=== PATIENT | female | born 1935 | race Caucasian/White ===

== ENCOUNTER 2019-09-28 14:22 | Emergency (ER) | payer MEDICARE, SELFPAY ==
[2019-09-28] VITALS (7 sets, daily range): BP systolic 184–209; BP diastolic 64–82; PULSE 70–80; RESP 18–20; TEMP 36.1; O2SAT 98–100
--- NOTE | ~2019-09-28 | CT_ITS ---
EXAMINATION: CT brain wo con INDICATION: Fall and dizziness COMPARISON: 11/05/2015 TECHNIQUE: Standard unenhanced head CT. The dose-length product (DLP) was 605.33 mGy-cm. The mA was a djusted according to patient size. Iterative reconstruction technique was employed. FINDINGS: There is no acute intraparenchymal hemorrhage. No evidence of mass lesion. No evidence of a cute infarction. There is moderate periventricular and subcortical hypodensity probably related to sm all vessel ischemic disease. There is moderate prominence of the sulci and ventricles related to cere bral atrophy. Intracranial calcified cerebral atherosclerosis is noted. There are no extra-axial stanislav ections. There is no mass effect or midline shift. The orbits and soft tissues are unremarkable. The visualized sinuses and mastoid air cells are well aerated. IMPRESSION: 1. No acute intracranial abnormality. 2. Age related findings. Reviewed, dictated and finalized at location [facility].
--- NOTE | 2019-09-28 14:33 | ECG_ITS ---
Measurements Intervals [place] Rate: 70 P: 59 SD: 170 QRS: 22 QRSD: 86 T: 31 QT: 365 QTc: 396 Interpretive Statements SINUS RHYTHM BORDERLINE T WAVE ABNORMALITY- ANTERIOR LEADS BASELINE ARTIFACT- I, II, III, AVR, AVL, AVF BORDERLINE ECG Electronically Signed On 09-28-2019 15:11:41 CDT by Bao Yousif D.O.
[2019-09-28 15:13] LABS: Basophils Absolute Auto 0.1 K/mm3 (0.0-0.1); Basophils Percent Auto 1.1 % (0.2-1.2); Eosinophils Absolute Auto 0.1 K/mm3 (0-0.3); Eosinophils Percent Auto 2.1 % (0-4.4); Hematocrit 43.5 % (37.0-47.0); Hemoglobin 14.6 g/dL (12.0-15.0); Immature Granulocyte Absolute 0.01 K/mm3 (0.00-0.031); Immature Granulocyte Percent A 0.2 % (0-0.5); Lymphocytes Absolute Auto 1.07 K/mm3 (0.9-3.2); Lymphocytes Percent Auto 17.4 % (18.3-44.2); Mean Corpuscular HGB Conc 33.6 g/dl (32-36); Mean Corpuscular Hemoglobin 29.5 pg (26-34); Mean Corpuscular Volume 87.9 fl (80-100); Mean Platelet Volume 10.1 fl (7.4-10.4); Monocytes Absolute Auto 0.4 K/mm3 (0.1-0.6); Monocytes Percent Auto 6.7 % (2.6-8.5); Neutrophils Absolute Auto 4.5 K/mm3 (1.3-6.7); Neutrophils Percent Auto 72.5 % (45.5-73.1); Platelet Count Result 334 k/mm3 (150-375); Red Blood Count 4.95 M/mm3 (4.2-5.4); Red Cell Distribution Width 12.4 % (11.5-14.5); White Blood Count 6.2 K/mm3 (4.5-10.0)
[2019-09-28 15:26] LABS: Blood Urea Nitrogen 16 mg/dL (7-17); Calcium 9.3 mg/dL (8.4-10.2); Carbon Dioxide 29 mmol/L (22-30); Chloride 95 mmol/L (98-107); Estimated CRCL calculation 36 ml/min; Estimated Glomerular Filt Rate 60; Glucose 108 mg/dL (65-105); Potassium 4.1 mmol/L (3.4-5.0); Sodium 129 mmol/L (137-145)
--- NOTE | 2019-09-28 19:11 | ED.DIZZY ---
HPI - Dizziness General Chief Complaint: Dizziness Stated Complaint: DIZZY, FALLS, TOO MANY BP MEDS Time Seen by Provider: 09/28/19 18:55 History of Present Illness HPI Narrative: Patient presents to the ER with her daughter. The daughter does most of the history giving. The patient is oriented x3, but has difficulty answering distinct questions. The daughter reports that her mom's blood pressure is been going up recently. The PCP added hydrochlorothiazide 25 mg a day. The patient has taken more than the prescribed amount. She had a low sodium before the hydrochlorothiazide was started. She fell a week ago while walking. It was witnessed by a friend. She fell backwards with her head on the concrete. She did not have loss of consciousness. She says she has a bump on the back of her head. She is complained of a headache up to 6 out of 10. She told her daughter it was a 6 upon arriving in the ER, but now is 0. She has had dizziness and off-balance since before the fall last week, but is gotten worse. Her daughter is considering getting a wheelchair for her. They both say that she is weak, but is able to lift and hold both arms and legs, according to NIH guidelines. She has not been sick and denies fever cough cold diarrhea. Her daughter is started ampm medication box. The PCP is at [facility]. The daughter reports her to follow with a neurologist at [facility] if that is going to be necessary. The daughter recently had a concussion, and suspects that her mother is having a concussion. The patient lives with her , who does not have memory problems. The daughter reports memory problems for a year. Cannot remember the day of the week, or the time of the day. he she has to make lists of things she would ordinarily remember. MD elicited complaint: dizziness Onset (ago): week(s) Timing: gradual onset Severity: moderate Description: sense of movement Context: change in medication and trauma History of similar symptoms: Yes Exacerbating factors: movement/ambulation Relieving factors: nothing Associated symptoms: denies other symptoms and weakness Associated neuro symptoms: vision changes (Once she saw a black spot.) Related Data Home Medications Medication Instructions Recorded Confirmed calcium carbonate [Tums Ultra] 400 mg PO DAILY 09/28/19 09/28/19 cyanocobalamin (vitamin B-12) 1,000 mcg PO DAILY 09/28/19 09/28/19 [Vitamin B-12] enalapril maleate 10 mg PO BID 09/28/19 09/28/19 estradiol 2 mg PO DAILY 09/28/19 09/28/19 estradiol VAGINAL 09/28/19 09/28/19 hydrochlorothiazide 25 mg PO 09/28/19 levothyroxine 112 mcg PO 09/28/19 loratadine [Claritin] 10 mg PO DAILY 09/28/19 09/28/19 lorazepam 0.5 mg PO 09/28/19 nortriptyline 25 mg PO 09/28/19 verapamil 180 mg PO 09/28/19 Allergies Allergy/AdvReac Type Severity Reaction Status Date / Time erythromycin base Allergy Unknown Unknown Verified 09/28/19 14:34 Sulfa (Sulfonamide Allergy Unknown Unknown Verified 09/28/19 14:34 Antibiotics) Review of Systems Review of Systems: Narrative: CONSTITUTIONAL: Denies fever, chills, or sweats. EYES: Denies visual changes, redness, or discharge. ENT: Denies rhinorrhea, congestion, sore throat, or otalgia. CARDIOVASCULAR: Denies chest pain, palpitations, or edema. RESPIRATORY: Denies cough or dyspnea. GASTROINTESTINAL: Denies abdominal pain, nausea, vomiting, or diarrhea. GENITOURINARY: Denies dysuria or hematuria. SKIN: Denies rash or itching. MUSCULOSKELETAL: Denies back pain, joint pain, or myalgia. NEUROLOGIC: She has had headache, and weakness PSYCHIATRIC: Denies anxiety or depression. PMFSH Social History Social History Gender identity (if verbalized by the patient): Female Exam Narrative: Exam Narrative: GENERAL: Well-appearing, well-nourished, and in no acute distress. HEAD: Normocephalic, atraumatic. EYES: PERRLA and EOMI. ENT: Nares clear, no rhinorrhea or epistaxis. Mucous membranes dry. NECK: Supple. CHEST: Cl
[2019-09-28] MEDS: SODIUM CHLORIDE 0.9% IV 1,000 ML 999 ML IV CONT (19:35)
[2019-09-28 19:48] LABS: Add Urine Microscopic? NO; Appearance Urine Clear (Clear); Bilirubin Urine Negative (Negative); Blood Urine Negative (Negative); Color Urine Colorless (Yellow); Glucose Urine UA Negative (Negative); Ketones Urine Negative (Negative); Leukocyte Esterase Ur Negative LEU/UL (Negative); Nitrate Urine Negative (Negative); Protein Urine Negative (Negative); Specific Grav Ur 1.008 (1.001-1.035); Urobilinogen Urine Negative mg/dL (<2.0)
[2019-09-28] MEDS: MECLIZINE HCL 25 MG TABLET PO (21:18)
== END 2019-09-28 22:16 | disposition home or self-care (01) ==
PROVIDERS: Emergency Medicine; Emergency Provider Emergency Medicine; PCP Internal Medicine
DX: R42 Dizziness and giddiness (principal); E87.1 Hypo-osmolality and hyponatremia; R41.3 Other amnesia; S09.90XA Unspecified injury of head, initial encounter; I10 Essential (primary) hypertension; W18.39XA Other fall on same level, initial encounter
CPT/HCPCS: 36415; 70450; 80048; 81003; 85025; 93005; 96360; 96361; 99284; A9270; J7030

== ENCOUNTER 2019-11-09 09:58 | Emergency (ER) | payer MEDICARE, SELFPAY ==
--- NOTE | 2019-11-09 10:06 | ED.WOUNDLAC ---
HPI - Wound/Laceration General Chief Complaint: Wound/Laceration Stated Complaint: laceration on forehead Time Seen by Provider: 11/09/19 10:20 Source: patient, family and RN notes reviewed Mode of arrival: ambulatory Limitations: no limitations History of Present Illness HPI narrative: 84 year old female accompanied by daughter presents to express care with laceration to her forehead which occurred this morning while she was walking the exercise track at [address] [place] [address] in [place]. Daughter was with her at the time of fall states that mother stubbed her left foot and fell hitting her forehead onto hand rail at side of track.Patient denies any feelings of dizziness prior to fall or any loss of consciousness at time of fall. Patient also has skin tear to the left thenar region left hand that daughter cleanses and applied Neosporin ointment and band-aid prior to arrival with noted ecchymosis to left hand, and pain to right little finger with full ROM and some bruising. Daughter states that mother has had several falls in the past few years states tetanus is up to date. Daughter states that mother has cane but won't use it. Onset (ago): hour(s) (1) Location: other (forehead) Extremity Location: Left: hand (skin tear left thenar region) Place: outdoors Patient tetanus UTD: Yes Context: accidental Associated symptoms: none Treatments prior to arrival: bandage Related Data Home Medications Medication Instructions Recorded Confirmed cyanocobalamin (vitamin B-12) 1,000 mcg PO DAILY 09/28/19 09/28/19 [Vitamin B-12] enalapril maleate 10 mg PO BID 09/28/19 11/09/19 estradiol 4 mg PO BID 09/28/19 11/09/19 hydrochlorothiazide 25 mg PO DAILY 09/28/19 11/09/19 levothyroxine 112 mcg PO DAILY 09/28/19 11/09/19 loratadine [Claritin] 10 mg PO DAILY 09/28/19 11/09/19 lorazepam 0.5 mg PO DAILY 09/28/19 11/09/19 nortriptyline 25 mg PO DAILY 09/28/19 11/09/19 verapamil 180 mg PO BID 09/28/19 11/09/19 Allergies Allergy/AdvReac Type Severity Reaction Status Date / Time erythromycin base Allergy Unknown Unknown Verified 09/28/19 14:34 Sulfa (Sulfonamide Allergy Unknown Unknown Verified 09/28/19 14:34 Antibiotics) Review of Systems Review of Systems: Narrative: CONSTITUTIONAL: Denies fever, chills, or sweats. EYES: Denies visual changes, redness, or discharge, denies any visual changes. ENT: Denies rhinorrhea, congestion, sore throat, or otalgia. CARDIOVASCULAR: Denies chest pain, palpitations, or edema. RESPIRATORY: Denies cough or dyspnea. GASTROINTESTINAL: Denies abdominal pain, nausea, vomiting, or diarrhea. GENITOURINARY: Denies dysuria or hematuria. SKIN: Denies rash or itching.laceration to forehead from fall, superficial skin tear to left thenar region which family cleansed and applied Neosporin ointment and band-aid prior to arrival MUSCULOSKELETAL: Denies back pain, joint pain, or myalgia. NEUROLOGIC: Denies acute headache, numbness, or weakness. PSYCHIATRIC: Denies anxiety or depression, daughter states memory issues. All systems reviewed & are unremarkable except as noted in HPI and below PMFSH Past Medical History Medical History (Updated 11/10/19 @ 15:19 by Sarah Marte NP) Arthritis Hypertension Hypothyroidism IBS (irritable bowel syndrome) Skin cancer (melanoma) Surgical History Surgical History (Updated 11/09/19 @ 17:51 by Sarah Marte NP) H/O: hysterectomy History of cervical spinal surgery Social History Social History (Updated 11/09/19 @ 17:51 by Sarah Marte NP) Smoking status: Never smoker Living arrangements: with family Gender identity (if verbalized by the patient): Female Comments At time of signature, agree with nursing past medical, surgical, social and family history. There is no relevant family history pertinent to the presenting complaint Exam Narrative: Exam Narrative: GENERAL: Well-appearing, well-nourished, and in no acute distress. HEAD: Normocephalic, atraumat
[2019-11-09 10:12] VITALS: BP 164/83; PULSE 78; RESP 20; TEMP 36.1; O2SAT 100
--- NOTE | 2019-11-09 10:39 | PC.NURSE ---
skin glue to forehead and 3 steri applied
[2019-11-09 10:46] VITALS: BP 193/70; PULSE 70
[2019-11-09 10:47] VITALS: BP 184/50; BP 185/68; PULSE 68; PULSE 70
== END 2019-11-09 10:50 | disposition home or self-care (01) ==
PROVIDERS: Emergency Provider Registered Nurse; PCP Internal Medicine
DX: S01.81XA Laceration without foreign body of other part of head, initial encounter (principal); W18.00XA Striking against unspecified object with subsequent fall, initial encounter; Y93.01 Activity, walking, marching and hiking; S60.051A Contusion of right little finger without damage to nail, initial encounter; S61.412A Laceration without foreign body of left hand, initial encounter; M19.90 Unspecified osteoarthritis, unspecified site; I10 Essential (primary) hypertension; E03.9 Hypothyroidism, unspecified; Z85.820 Personal history of malignant melanoma of skin
CPT/HCPCS: 12011; 99212; G0463

== ENCOUNTER 2020-01-17 12:20 | Outpatient (CLI) | payer MEDICARE, SELFPAY ==
--- NOTE | ~2020-01-17 | MR_ITS ---
EXAMINATION: MR lumbar spine wo con DATE: 01/17/2020 13:48 INDICATION: Lumbago. TECHNIQUE: Magnetic resonance imaging (MRI) of the lumbar spine was performed without intravenous con trast. Sequences included sagittal T2-weighted FSE, sagittal T2-weighted FS FSE, sagittal T1-weighted FSE, and axial T2-weighted FSE. COMPARISON: None FINDINGS: There is 7 degrees levocurvature of lumbar spine. There is 3 mm anterolisthesis of L2 on L3 and L3 on L4 and 3 mm retrolisthesis of L4 on L5. Vertebral body heights are normal. There is modera tely decreased disc height at L2-L3 and severely decreased disc height at L3-L4 and L4-L5. The distal spinal cord signal intensity is normal. The conus medullaris is at T12-L1. The following disc levels are specifically discussed: L1-L2: The disc is mildly bulging. There is mild bilateral facet joint osteoarthritis. There is mild right and moderate left neural foraminal stenosis. There is no central canal stenosis. L2-L3: The disc is bulging and has an annular fissure. There is severe bilateral facet joint osteoart hritis. There is moderate bilateral neural foraminal stenosis. There is severe central canal stenosis . L3-L4: The disc is bulging. There is severe bilateral facet joint osteoarthritis. There is moderate r ight and mild left neural foraminal stenosis. There is severe central canal stenosis. L4-L5: The disc is bulging. There is mild bilateral facet joint osteoarthritis. There is moderate rig ht and severe left neural foraminal stenosis. There is mild central canal stenosis. L5-S1: The disc is bulging. There is moderate bilateral facet joint osteoarthritis. There is mild odalys ateral neural foraminal stenosis. There is mild central canal stenosis. IMPRESSION: 1. Severe lumbar spondylosis. Reviewed, dictated and finalized at location A.
== END 2020-01-17 12:21 | disposition home or self-care (01) ==
LOC: ANHIMG 12:37
PROVIDERS: PCP Internal Medicine; Visit Provider Nurse Practitioner Family
DX: M47.896 Other spondylosis, lumbar region (principal)
CPT/HCPCS: 72148

== ENCOUNTER 2020-04-27 08:55 | Inpatient (IN) | payer MEDICARE, SELFPAY ==
[2020-04-27] VITALS (13 sets, daily range): BP systolic 155–232; BP diastolic 57–101; PULSE 65–82; RESP 15–18; TEMP 36.1–36.6; O2SAT 97–100; BMI 21.2
--- NOTE | 2020-04-27 | ECHO_ITS ---
Patient Info Name: Dena Zurita Age: 84 years : 1935 Gender: Female Ht: 64 in Wt: 123 lbs BSA: 1.59 m2 HR: 70 bpm BP: 189 / 69 mmHg Heart Rhythm: Sinus Rhythm Technical Quality: Good Exam Date: 04/27/2020 1:29 PM Exam Location: [facility] Pulmonary Patient Status: Outpatient Admit Date: 04/27/2020 Staff Ordering Physician: Hong Du MD Rack Carrier: El Monet RDCS Attending Provider: Hong Du MD Referring Physician: Florian RAMESH; Exam Type: CA echo doppler color flow Study Info Indications R55 - Syncope and collapse Complete two-dimensional, color flow and Doppler transthoracic echocardiogram is performed. History/Risk Factors Syncope; HTN. Summary 1. Complete two-dimensional, color flow and Doppler transthoracic echocardiogram is performed. 2. Left ventricular chamber dimension is normal. 3. Left ventricular systolic function is hyperdynamic, estimated at >70%. 4. There is mildly increased left ventricular wall thickness. 5. The left ventricular diastolic function is grade II diastolic dysfunction. 6. Right atrial chamber dimension is mildly enlarged. 7. There is mild mitral valve regurgitation. 8. There is mild tricuspid valve regurgitation. 9. There is mild pulmonic regurgitation. Left Ventricle Left ventricular chamber dimension is normal. Left ventricular systolic function is hyperdynamic, estimated at >70%. There is mildly increased left ventricular wall thickness. The left ventricular diastolic function is grade II diastolic dysfunction. Right Ventricle Right ventricular chamber dimension is normal. Right ventricular systolic function is normal. Left Atria Left atrial chamber dimension is normal. Right Atria Right atrial chamber dimension is mildly enlarged. Atrial Septum Intact interatrial septum visualized by color flow imaging. Aortic Valve The aortic valve is trileaflet. There is mild aortic valve sclerosis. There is no aortic valve stenosis. There is trace aortic valve regurgitation. Pulmonic Valve The pulmonic valve is normal. There is no pulmonic valve stenosis. There is mild pulmonic regurgitation. Mitral Valve The mitral valve has calcified annulus. There is no mitral valve stenosis. There is mild mitral valve regurgitation. Tricuspid Valve The tricuspid valve leaflets are normal. There is no significant tricuspid valve stenosis. There is mild tricuspid valve regurgitation. No pulmonary hypertension, estimated pulmonary arterial systolic pressure is 32 mmHg. Pericardium/Pleural The pericardium appears normal. There is no pericardial effusion. Inferior Vena Cava Normal inferior vena cava with >50% collapse upon inspiration consistent with normal right atrial pressure, 5 mmHg. Aorta The aortic root size at the sinus of Valsalva is normal. Left Ventricular Outflow Tract Name Value Normal LVOT 2D LVOT Diameter 1.9 cm LVOT Doppler LVOT Peak Gradient 4 mmHg LVOT Mean Gradient 2 mmHg LVOT VTI
--- NOTE | ~2020-04-27 | CT_ITS ---
EXAMINATION: CTA chest PE protocol DATE: 05/02/2020 07:52 INDICATION: Pleuritic chest pain TECHNIQUE: Computed tomography angiography (CTA) of the chest was performed with 100 mL Omnipaque-350 intravenous contrast timed to evaluate the pulmonary arteries. Coronal maximum intensity projection 3D-reconstructions were created by the technologist. Automated exposure control and iterative reconst ruction technique were employed. Exam dose: 273.76 mGy-cm total exam DLP. COMPARISON: 11/05/2015 2 view chest FINDINGS: There is diagnostic contrast enhancement of the pulmonary arteries and no evidence of pulmo nary embolism. No thoracic aortic aneurysm or dissection. No hilar or mediastinal mass lesion or lymphadenopathy. No pericardial or pleural effusion. Normal morphology of the adrenal glands. Mild bilateral apical scarring. No pulmonary infiltrate or consolidation or pulmonary mass lesion is detected. Included skeletal structures are unremarkable, without evidence of any suspicious osteolytic or osteo blastic lesions. IMPRESSION: No evidence of pulmonary embolism Reviewed, dictated and finalized at [facility]. Reviewed, dictated and finalized at location A. [employer]
--- NOTE | ~2020-04-27 | CT_ITS ---
EXAMINATION: CT brain wo con DATE: 04/27/2020 09:28 INDICATION: Syncope TECHNIQUE: Computed tomography (CT) of the head was performed without intravenous contrast. Sagittal and coronal reconstructions were performed. The mA was adjusted according to patient size. Iterative reconstruction technique was employed. The dose-length product was 605.33 mGy-cm. COMPARISON: head CT dated 09/28/2019 FINDINGS: No acute intracranial hemorrhage, acute infarction or abnormal extra axial fluid collection. There is moderate scattered white matter hypoattenuation consistent with chronic small vessel ischemic diseas e. Symmetric prominence of the sulci and ventricles consistent with mild age-appropriate diffuse cere bral volume loss. No mass/mass effect. Changes of bilateral intraocular lens replacement. The orbits, paranasal sinuses and mastoid air cells are normal. IMPRESSION: 1. No acute intracranial process. 2. Stable appearance of age-related changes including mild diffuse volume loss and moderate scattered white matter hypoattenuation consistent with chronic small vessel ischemic disease. Reviewed, dictated and finalized at location B. [employer] IMPRESSION: 1. No acute intracranial process. 2. Stable appearance of age-related changes including mild diffuse volume loss and moderate scattered white matter hypoattenuation consistent with chronic sma ll vessel ischemic disease.
--- NOTE | 2020-04-27 08:55 | ED.SYNCOPE ---
HPI - Syncope General Chief Complaint: Syncope Stated Complaint: syncopal episode History of Present Illness HPI narrative: 84 yo female presents to the ED for syncope. She reports that she was walking when she suddenly lost consciousness. She did not have any prodromal symptoms. Her was standing next to her and gently lowered her to the ground. She was only briefly unconscious. She then tried to get up and again passed out. No chest pain, SOB. Her daughter reports that she has been suffering from depression recently and has had poor appetite. Related Data Home Medications Medication Instructions Recorded Confirmed cyanocobalamin (vitamin B-12) 1,000 mcg PO DAILY 09/28/19 04/27/20 [Vitamin B-12] enalapril maleate 10 mg PO BID 09/28/19 04/27/20 estradiol 4 mg PO BID 09/28/19 04/27/20 hydrochlorothiazide 25 mg PO DAILY 09/28/19 04/27/20 levothyroxine 112 mcg PO DAILY 09/28/19 04/27/20 loratadine [Claritin] 10 mg PO DAILY 09/28/19 04/27/20 verapamil 180 mg PO BID 09/28/19 04/27/20 acetaminophen [Tylenol] 325 mg PO DAILY 04/27/20 04/27/20 calcium carbonate [Tums] 750 mg PO BID 04/27/20 04/27/20 cholecalciferol (vitamin D3) 50 mcg PO DAILY 04/27/20 04/27/20 [Vitamin D3] citalopram 10 mg PO DAILY 04/27/20 04/27/20 estradiol VAGINAL 04/27/20 naproxen sodium [Aleve] 220 mg PO DAILY 04/27/20 04/27/20 Allergies Allergy/AdvReac Type Severity Reaction Status Date / Time erythromycin base Allergy Unknown Unknown Verified 04/27/20 09:33 Sulfa (Sulfonamide Allergy Unknown Unknown Verified 04/27/20 09:33 Antibiotics) Review of Systems Review of Systems: All systems reviewed & are unremarkable except as noted in HPI and below Constitutional: Constitutional: Denies fever(s) and Denies weakness Eyes: Eyes: Reports no additional eye complaints ENT: Denies dizziness Cardiovascular: Cardiovascular: Denies chest pain Respiratory: Respiratory: Denies dyspnea Gastrointestinal: Gastrointestinal: Denies abdominal pain, Denies diarrhea and Denies nausea Genitourinary: Genitourinary: Denies hematuria and Denies dysuria Musculoskeletal: Musculoskeletal: Denies back pain Neurologic: Denies dizziness, Reports syncope and Denies weakness Psychiatric: Psychiatric: Reports depression Endocrine: Endocrine: Denies polydipsia PMFSH Past Medical History Medical History Arthritis Hypertension Hypothyroidism IBS (irritable bowel syndrome) Skin cancer (melanoma) Surgical History Surgical History H/O: hysterectomy History of cervical spinal surgery Social History Social History Smoking status: Never smoker Gender identity (if verbalized by the patient): Female Exam Const: General: no acute distress and alert Nutritional Appearance: well nourished Orientation/consciousness: patient oriented x3 HENMT: Mouth: Yes dry mucous membranes Neck: Neck: normal visual inspection Resp: Effort & Inspection: normal respiratory effort Auscultation: clear to auscultation bilaterally Cardio: Rate: regular rate Rhythm: regular rhythm Skin: General skin exam: normal color Neuro: General: patient oriented x3, moves all extremities, no focal motor deficits and CN's II-XI intact bilaterally Speech: normal speech Extrem: General: normal to inspection and no edema Course Vital Signs Vital signs: Vital Signs Temperature 36.6 C 04/27/20 08:50 Pulse Rate 71 04/27/20 08:50 Respiratory Rate 18 04/27/20 08:50 Blood Pressure 212/72 H 04/27/20 08:50 Pulse Oximetry 98 04/27/20 08:50 Temperature 36.6 C 04/27/20 08:50 Pulse Rate 66 04/27/20 11:06 Respiratory Rate 15 04/27/20 11:06 Blood Pressure 189/69 H 04/27/20 11:06 Pulse Oximetry 97 04/27/20 11:06 MDM - Syncope MDM Narrative Medical decision making narrati
--- NOTE | 2020-04-27 08:58 | ECG_ITS ---
Measurements Intervals [place] Rate: 65 P: 79 MD: 180 QRS: 56 QRSD: 85 T: 49 QT: 391 QTc: 407 Interpretive Statements SINUS RHYTHM POSSIBLE LEFT ATRIAL ENLARGEMENT BASELINE ARTIFACT- I, II, III, AVL, AVF BORDERLINE ECG Electronically Signed On 04-27-2020 9:09:02 TIRE BALANCER by Bao Yousif D.O.
[2020-04-27] MEDS: SODIUM CHLORIDE 0.9% IV 500 ML 999 ML IV CONT (09:21)
[2020-04-27 09:56] LABS: Basophils Absolute Auto 0.1 K/mm3 (0.0-0.1); Basophils Percent Auto 0.5 % (0.2-1.2); Eosinophils Percent Auto 0.3 % (0-4.4); Hematocrit 35.8 % (37.0-47.0); Hemoglobin 12.5 g/dL (12.0-15.0); Immature Granulocyte Absolute 0.04 K/mm3 (0.00-0.031); Immature Granulocyte Percent A 0.4 % (0-0.5); Lymphocytes Absolute Auto 0.72 K/mm3 (0.9-3.2); Lymphocytes Percent Auto 7.9 % (18.3-44.2); Mean Corpuscular HGB Conc 34.9 g/dl (32-36); Mean Corpuscular Hemoglobin 30.6 pg (26-34); Mean Corpuscular Volume 87.5 fl (80-100); Mean Platelet Volume 9.7 fl (7.4-10.4); Monocytes Absolute Auto 0.5 K/mm3 (0.1-0.6); Monocytes Percent Auto 5.7 % (2.6-8.5); Neutrophils Absolute Auto 7.8 K/mm3 (1.3-6.7); Neutrophils Percent Auto 85.2 % (45.5-73.1); Platelet Count Result 310 k/mm3 (150-375); Red Blood Count 4.09 M/mm3 (4.2-5.4); Red Cell Distribution Width 11.9 % (11.5-14.5); White Blood Count 9.1 K/mm3 (4.5-10.0)
[2020-04-27 10:09] LABS: Alanine Aminotransferase 16 U/L (4-35); Albumin Level 4.1 g/dL (3.5-5.1); Alkaline Phosphatase 51 U/L (38-126); Anion Gap 7 mmol/L (8-16); Aspartate Amino Transferase 25 U/L (14-36); Bilirubin,Total 0.6 mg/dL (0.2-1.3); Blood Urea Nitrogen 24 mg/dL (7-17); Calcium 8.9 mg/dL (8.4-10.2); Carbon Dioxide 25 mmol/L (22-30); Chloride 92 mmol/L (98-107); Estimated CRCL calculation 27 ml/min; Estimated Glomerular Filt Rate 43; Glucose 100 mg/dL (65-105); Potassium 4.3 mmol/L (3.4-5.0); Sodium 124 mmol/L (137-145)
[2020-04-27 10:23] LABS: Add Urine Microscopic? NO; Appearance Urine Clear (Clear); Bilirubin Urine Negative (Negative); Blood Urine Negative (Negative); Color Urine Straw (Yellow); Glucose Urine UA Negative (Negative); Ketones Urine Negative (Negative); Leukocyte Esterase Ur Negative LEU/UL (Negative); Nitrate Urine Negative (Negative); Protein Urine Negative (Negative); Urobilinogen Urine Negative mg/dL (<2.0)
[2020-04-27] MEDS: hydrALAZINE HCL 20 MG/ML VIAL 10 MG IV PUSH (10:45)
--- NOTE | 2020-04-27 12:00 | ADMGEN ---
This patient, Dena Zurita, was admitted to Medical Room 245-. Patient/family oriented to hospital policies and general routines including ID bracelet, bed and alarms, visiting hours, pain management, procedures, bathroom and other care routines, personal items, smoking policy, room service/diet, and visiting hours. Information on how to activate the Rapid Response Team has been discussed. Patient/Family are encouraged to report perceived risks to care and to ask questions if they do not understand what they are told or what they should do.
--- NOTE | 2020-04-27 12:57 | PM.IMHP ---
H&P: HPI History of Present Illness Date/Time: 04/27/20 12:57 Chief Complaint: passed out Narrative: Date of visit 04/27/2020 1200 Dena Zurita is a 84 year old female with hypertension states this a.m. was walking toward kitchen when she passed out without any warning. Says she fell back and was unconscious for probably maybe 1 or 2 minutes and her helped her up. She was not confused afterwards but did say that after falling had a loose bowel movement which she often does with her irritable bowel. No witnessed seizure activity. Significantly she was hospitalized here just over 4 years ago with a syncopal episode with similar presentation at which time she had a UTI and was felt to be slightly dry. She has had no other fevers chills nausea or vomiting and noticed no palpitations. Review of Systems Review of Systems: Narrative: Constitutional weight steady appetite fair Eye no double vision scotoma Mouth no pharyngitis laryngitis Pulmonary no shortness breath wheezing or cough CV no chest pain or palpitation GI air Will bow occasional loose stool no melena hematochezia no dysuria no hematuria Muscle skeletal no particular joint discomfort Integument no skin breakdown rashes Neuropsych no seizures no syncope PMFSH Past Medical History Medical History Arthritis Hypertension Hypothyroidism IBS (irritable bowel syndrome) Skin cancer (melanoma) Surgical History Surgical History H/O: hysterectomy History of cervical spinal surgery Family History Family History (Updated 04/27/20 @ 13:06 by Hong Du MD) Father , In his 80s thought to be natural causes No problems noted. Mother , In her 80s COPD No problems noted. Social History Social History (Updated 04/27/20 @ 13:06 by Hong Du MD) Social History: Lives at home with her , no occupational exposure Two adult children living and well Smoking status: Never smoker Alcohol intake: never Gender identity (if verbalized by the patient): Female Meds Home Medications and Allergies Home Medications Medication Instructions Recorded Confirmed Type cyanocobalamin (vitamin B-12) 1,000 mcg PO DAILY 09/28/19 04/27/20 History [Vitamin B-12] enalapril maleate 10 mg PO BID 09/28/19 04/27/20 History estradiol 4 mg PO BID 09/28/19 04/27/20 History hydrochlorothiazide 25 mg PO DAILY 09/28/19 04/27/20 History levothyroxine 112 mcg PO DAILY 09/28/19 04/27/20 History loratadine [Claritin] 10 mg PO DAILY 09/28/19 04/27/20 History verapamil 180 mg PO BID 09/28/19 04/27/20 History acetaminophen [Tylenol] 325 mg PO DAILY 04/27/20 04/27/20 History calcium carbonate [Tums] 750 mg PO BID 04/27/20 04/27/20 History cholecalciferol (vitamin D3) 50 mcg PO DAILY 04/27/20 04/27/20 History [Vitamin D3] citalopram 10 mg PO DAILY 04/27/20 04/27/20 History estradiol VAGINAL 04/27/20 History naproxen sodium [Aleve] 220 mg PO DAILY 04/27/20 04/27/20 History Allergies Allergy/AdvReac Type Severity Reaction Status Date / Time erythromycin base Allergy Unknown Unknown Verified 04/27/20 09:33 Sulfa (Sulfonamide Allergy Unknown Unknown Verified 04/27/20 09:33 Antibiotics) Vital Signs Vital Signs - 24 hr 04/27/20 08:50 04/27/20 09:31 04/27/20 09:59 Temperature 36.6 C Pulse Rate 71 75 67 Respiratory Rate 18 Blood Pressure 212/72 H 210/73 H Pulse Oximetry 98 04/27/20 10:01 04/27/20 10:04 04/27/20 11:06 Temperature Pulse Rate 65 78 66 Respiratory Rate 15 Blood Pressure 208/69 H 232/101 H 189/69 H Pulse Oximetry 97 04/27/20 12:38 Temperature Pulse Rate Respiratory Rate 18 Blood Pressure Pulse Oximetry 98 Exam Narrative: Exam Narrative: Blood pressure 194/84 right arm lying sitting and standing with no orthostatic changes pulse 72 afebrile P
[2020-04-27] MEDS: SODIUM CHLORIDE 0.9% IV 1,000 ML 50 ML IV CONT (12:59)
[2020-04-27] MEDS: ENALAPRIL MALEATE 10 MG TABLET PO ×2 (13:00→17:41)
[2020-04-27] MEDS: VERAPAMIL HCL 180 MG TABLET ER PO ×2 (13:00→21:47)
[2020-04-27] MEDS: CALCIUM CARBONATE (TUMS) 500 MG (200 MG ELEMENTAL) 300 MG BY MOUTH (17:40)
[2020-04-27] MEDS: ENOXAPARIN 40 MG/0.4 ML SYRINGE SUB-Q (21:47)
[2020-04-28] VITALS (10 sets, daily range): BP systolic 142–146; BP diastolic 46–55; PULSE 62–81; RESP 16–18; TEMP 36.1–36.3; O2SAT 96–99
[2020-04-28 05:50] LABS: Anion Gap 2 mmol/L (8-16); Blood Urea Nitrogen 17 mg/dL (7-17); Calcium 8.5 mg/dL (8.4-10.2); Carbon Dioxide 25 mmol/L (22-30); Chloride 99 mmol/L (98-107); Estimated CRCL calculation 39 ml/min; Estimated Glomerular Filt Rate > 60; Glucose 86 mg/dL (65-105); Potassium 3.9 mmol/L (3.4-5.0); Sodium 126 mmol/L (137-145)
[2020-04-28 06:08] LABS: Sodium Urine Random 103 meq/L
[2020-04-28] MEDS: VERAPAMIL HCL 180 MG TABLET ER PO ×2 (10:05→21:22)
[2020-04-28] MEDS: CHOLECALCIFEROL 1,000 UNITS TABLET 2000 UNITS PO (10:06)
[2020-04-28] MEDS: LEVOTHYROXINE SODIUM 112 MCG TABLET PO (10:06)
[2020-04-28] MEDS: ENALAPRIL MALEATE 10 MG TABLET PO ×2 (10:06→17:04)
[2020-04-28] MEDS: LORATADINE 10 MG TABLET PO (10:06)
[2020-04-28] MEDS: CALCIUM CARBONATE (TUMS) 500 MG (200 MG ELEMENTAL) 300 MG BY MOUTH ×2 (10:07→17:03)
[2020-04-28] MEDS: CYANOCOBALAMIN 1,000 MCG TABLET 1000 MCG PO (10:07)
--- NOTE | 2020-04-28 13:27 | PM.IMPN ---
Progress Note: A&P Assessment and Plan (1) Syncope and collapse: Code(s): R55 - Syncope and collapse Status: Acute Assessment and Plan: No obvious etiology. With no orthostasis could be arrhythmia and will monitor. repeat echocardiogram EF 70% with grade 2 diastolic dysfunction . will probable discharge with a long-term monitor. As above tele PACs only. CT of the brain is unremarkable and she had an MR in December. fasting cortisol adequate at 13 (2) Uncontrolled hypertension: Code(s): I10 - Essential (primary) hypertension Status: Acute Assessment and Plan: Blood pressure elevated on admission but much better now. Resumed verapamil and enalapril and monitor closely HCTZ still on hold (3) Hyponatremia: Code(s): E87.1 - Hypo-osmolality and hyponatremia Status: Acute Assessment and Plan: Sodium low and could be secondary to diuretic and SSRI with mild volume depletion. Gentle saline hydration overnight and still 126. TSH and fasting cortisol normal urine Na high and may be from HCTZ. Significantly during her last visit some 4 years ago sodium was only 135 (4) DVT prophylaxis: Code(s): Z29.9 - Encounter for prophylactic measures, unspecified Status: Acute Assessment and Plan: Low-dose Lovenox (5) Hypothyroidism: Code(s): E03.9 - Hypothyroidism, unspecified Status: Acute Assessment and Plan: Continue thyroid replacement and TSH normal Subjective Date/time seen: 04/28/20 13:27 Interval history: Date of visit 04/28. 84-year-old hypertensive female admitted with syncopal episode. She has had no further symptoms and no recurrent episodes of. Monitor reports intermittent AFib but on review is only PACs Exam Narrative: Exam Narrative: Blood pressure 146/50 pulse 72 afebrile Pupils equal reactive to light sclera anicteric Mouth normal Neck supple Lungs clear no wheezing consolidation CV no murmurs gallops rubs or clicks Abdomen soft nontender no masses Extremities without edema distal pulses are 1+ bruising of knees without tenderness Neuro alert oriented x4 with no focal deficits, cranial nerves 2-12 are intact, Objective Data Vital Signs Vital Signs: Vital Signs - 24 hr 04/27/20 14:00 04/27/20 15:49 04/27/20 16:00 Temperature 36.1 C L Pulse Rate 70 70 Respiratory Rate 18 Blood Pressure 182/57 H Pulse Oximetry 100 100 04/27/20 20:00 04/27/20 21:47 04/28/20 00:00 Temperature 36.3 C L Pulse Rate 70 82 78 Respiratory Rate 16 Blood Pressure 155/90 H Pulse Oximetry 99 04/28/20 04:00 04/28/20 06:00 04/28/20 08:00 Temperature 36.1 C L Pulse Rate 62 68 77 Respiratory Rate 16 Blood Pressure 146/51 H Pulse Oximetry 96 04/28/20 09:20 04/28/20 12:00 Temperature Pulse Rate 75 Respiratory Rate 16 Blood Pressure Pulse Oximetry 96 Intake/Output Intake/Output: Intake & Output 04/25/20 04/26/20 04/27/20 04/28/20 23:59 23:59 23:59 23:59 Intake Total 940 1332 Output Total 200 600 Balance 740 732 Meds/Results Medications: Active Medications Generic Name Dose Route Start Last Admin Trade Name Freq PRN Reason Stop Dose Admin Acetaminophen 650 mg 04/27/20 12:34 Acetaminophen 325 Mg Tablet PO Q4H PRN Mild Pain (1-3) or Fever Calcium Carbonate 300 mg 04/27/20 17:00 04/28/20 10:07 Calcium Carbonate (Tums) 500 Mg (200 Mg Elemental) BY MOUTH 300 mg BID JARRET Administration Cyanocobalamin 1,000 mcg 04/28/20 09:00 04/28/20 10:07 Cyanocobalamin 1,000 Mcg Tablet PO 1,000 mcg DAILY JARRET Administration Enalapril Maleate 10 mg 04/27/20 17:00 04/28/20 10:06 Enalapril Maleate 10 Mg Tablet PO 10 mg BID JARRET Administration Enoxaparin Sodium 40 mg 04/27/20 21:00 04/27/20 21:47 Enoxaparin 40 Mg/0.4 Ml Syringe SUB-Q 40 mg HS JARRET Administration Levothyroxine Sodium 112 mcg 04/28/20 09:00 04/28/20 10:06 Levo
[2020-04-28] MEDS: ENOXAPARIN 40 MG/0.4 ML SYRINGE SUB-Q (21:22)
[2020-04-29] VITALS (10 sets, daily range): BP systolic 144–180; BP diastolic 59–76; PULSE 60–99; RESP 16–22; TEMP 36.3–37.3; O2SAT 94–100
[2020-04-29] MEDS: ACETAMINOPHEN 325 MG TABLET 650 MG PO (00:15)
[2020-04-29 06:09] LABS: Anion Gap 6 mmol/L (8-16); Blood Urea Nitrogen 13 mg/dL (7-17); Calcium 8.8 mg/dL (8.4-10.2); Carbon Dioxide 24 mmol/L (22-30); Chloride 96 mmol/L (98-107); Estimated CRCL calculation 39 ml/min; Estimated Glomerular Filt Rate > 60; Glucose 87 mg/dL (65-105); Potassium 3.8 mmol/L (3.4-5.0); Sodium 126 mmol/L (137-145)
--- NOTE | 2020-04-29 07:24 | PC.NURSE ---
CALLED INTO ROOM, DAUGHTER ON PTS PHONE. STATES MOTHER CALLED HER CONFUSED AND CRYING AND DEMANDING TO TALK WITH FLOR KEARNEY ABOUT COMING IN AND BEING PTS ADVOCATE. FLOR NOTIFIED AND WILL CALL DAUGHTER BACK
--- NOTE | 2020-04-29 07:37 | PC.NURSE ---
Call to pharmacy in regards to the patients Synthroid schedule at this time. Currently the patients Synthroid is scheduled at the same time as all of her other medications including her vitamin D and Tums tablets.
--- NOTE | 2020-04-29 07:43 | ECG_ITS ---
Measurements Intervals Gaines Rate: 66 P: MA: 0 QRS: 59 QRSD: 82 T: 47 QT: 385 QTc: 405 Interpretive Statements SINUS RHYTHM FREQUENT ATRIAL PREMATURE COMPLEXES BASELINE ARTIFACT- II, III, AVF, V5 ABNORMAL ECG Electronically Signed On 04-29-2020 8:29:40 COBBLER MCKAY by Bao Yousif D.O.
[2020-04-29] MEDS: LEVOTHYROXINE SODIUM 112 MCG TABLET PO (08:43)
[2020-04-29] MEDS: CALCIUM CARBONATE (TUMS) 500 MG (200 MG ELEMENTAL) 300 MG BY MOUTH (10:55)
[2020-04-29] MEDS: CHOLECALCIFEROL 1,000 UNITS TABLET 2000 UNITS PO (10:55)
[2020-04-29] MEDS: LORATADINE 10 MG TABLET PO (10:56)
[2020-04-29] MEDS: VERAPAMIL HCL 180 MG TABLET ER PO ×2 (10:56→20:25)
[2020-04-29] MEDS: ENALAPRIL MALEATE 10 MG TABLET PO ×2 (10:56→18:03)
[2020-04-29] MEDS: CYANOCOBALAMIN 1,000 MCG TABLET 1000 MCG PO (10:56)
--- NOTE | 2020-04-29 17:10 | PM.IMPN ---
Progress Note: A&P Assessment and Plan (1) Syncope and collapse: Code(s): R55 - Syncope and collapse Status: Acute Assessment and Plan: No obvious etiology. With no orthostasis could be arrhythmia and will monitor. repeat echocardiogram EF 70% with grade 2 diastolic dysfunction . will probable discharge with a long-term monitor. As above tele PACs only. CT of the brain is unremarkable and she had an MR in December. fasting cortisol adequate at 13 (2) Uncontrolled hypertension: Code(s): I10 - Essential (primary) hypertension Status: Acute Assessment and Plan: Blood pressure elevated on admission but much better now. Resumed verapamil and enalapril and monitor closely HCTZ still on hold, daughter states that home dose of verapamil is daily but we have been given at b.i.d. with good results and should help for PACs also (3) Hyponatremia: Code(s): E87.1 - Hypo-osmolality and hyponatremia Status: Acute Assessment and Plan: Sodium low and could be secondary to diuretic and SSRI with mild volume depletion and free water intake at home.. Gentle saline hydration overnight initially and still 126. TSH and fasting cortisol normal urine Na high and may be from HCTZ. Significantly during her last visit some 4 years ago sodium was only 135 Continue to monitor (4) DVT prophylaxis: Code(s): Z29.9 - Encounter for prophylactic measures, unspecified Status: Acute Assessment and Plan: Low-dose Lovenox (5) Hypothyroidism: Code(s): E03.9 - Hypothyroidism, unspecified Status: Acute Assessment and Plan: Continue thyroid replacement and TSH normal Subjective Date/time seen: 04/29/20 17:10 Interval history: Date of visit 04/29. 84-year-old hypertensive female admitted with syncopal episode. She has had no further symptoms and no recurrent episodes of. Monitor reports intermittent AFib but on review is only PACs. felt anxious this am and stated was having panic attack Exam Narrative: Exam Narrative: Blood pressure 146/76 pulse 76 afebrile Pupils equal reactive to light sclera anicteric Mouth normal Neck supple Lungs clear no wheezing consolidation CV no murmurs gallops rubs or clicks Abdomen soft nontender no masses Extremities without edema distal pulses are 1+ bruising of knees without tenderness Neuro alert oriented x4 with no focal deficits, cranial nerves 2-12 are intact, Objective Data Vital Signs Vital Signs: Vital Signs - 24 hr 04/28/20 20:00 04/28/20 21:08 04/29/20 00:00 Temperature 36.1 C L Pulse Rate 81 65 73 Respiratory Rate 16 Blood Pressure 146/55 H Pulse Oximetry 99 04/29/20 04:00 04/29/20 05:42 04/29/20 07:45 Temperature 36.3 C L 37.3 C Pulse Rate 60 69 78 Respiratory Rate 16 22 H Blood Pressure 167/59 H 180/63 H Pulse Oximetry 96 100 04/29/20 08:00 04/29/20 12:00 04/29/20 14:00 Temperature 36.9 C Pulse Rate 99 77 77 Respiratory Rate 20 Blood Pressure 149/76 H Pulse Oximetry 100 04/29/20 16:00 Temperature Pulse Rate 76 Respiratory Rate Blood Pressure Pulse Oximetry Intake/Output Intake/Output: Intake & Output 04/26/20 04/27/20 04/28/20 04/29/20 23:59 23:59 23:59 23:59 Intake Total 940 2712 200 Output Total 200 1850 920 Balance 740 862 -720 Meds/Results Medications: Active Medications Generic Name Dose Route Start Last Admin Trade Name Freq PRN Reason Stop Dose Admin Acetaminophen 650 mg 04/27/20 12:34 04/29/20 00:15 Acetaminophen 325 Mg Tablet PO 650 mg Q4H PRN Administration Mild Pain (1-3) or Fever Calcium Carbonate 300 mg 04/27/20 17:00 04/29/20 10:55 Calcium Carbonate (Tums) 500 Mg (200 Mg Elemental) BY MOUTH 300 mg BID JARRET Administration Cyanocobalamin 1,000 mcg 04/28/20 09:00 04/29/20 10:56 Cyanocobalamin 1,000 Mcg Tablet PO 1,000 mcg DAILY JARRET Administration Enalapril Maleate 10 mg 04/27/20 17:00
[2020-04-29] MEDS: ENOXAPARIN 40 MG/0.4 ML SYRINGE SUB-Q (20:25)
[2020-04-30] VITALS (10 sets, daily range): BP systolic 106–133; BP diastolic 46–84; PULSE 54–83; RESP 16–18; TEMP 36.1–36.3; O2SAT 97–99
[2020-04-30] MEDS: LEVOTHYROXINE SODIUM 112 MCG TABLET PO (06:48)
[2020-04-30 08:15] LABS: Anion Gap 2 mmol/L (8-16); Blood Urea Nitrogen 16 mg/dL (7-17); Carbon Dioxide 24 mmol/L (22-30); Chloride 94 mmol/L (98-107); Estimated CRCL calculation 35 ml/min; Estimated Glomerular Filt Rate 60; Glucose 88 mg/dL (65-105); Potassium 3.8 mmol/L (3.4-5.0); Sodium 120 mmol/L (137-145)
[2020-04-30] MEDS: CYANOCOBALAMIN 1,000 MCG TABLET 1000 MCG PO (08:22)
[2020-04-30] MEDS: ENALAPRIL MALEATE 10 MG TABLET PO ×2 (08:22→17:41)
[2020-04-30] MEDS: CALCIUM CARBONATE (TUMS) 500 MG (200 MG ELEMENTAL) 300 MG BY MOUTH ×2 (08:22→17:41)
[2020-04-30] MEDS: CHOLECALCIFEROL 1,000 UNITS TABLET 2000 UNITS PO (08:22)
[2020-04-30] MEDS: LORATADINE 10 MG TABLET PO (08:22)
[2020-04-30] MEDS: VERAPAMIL HCL 180 MG TABLET ER PO ×2 (08:40→20:10)
--- NOTE | 2020-04-30 14:08 | PM.IMPN ---
Progress Note: A&P Assessment and Plan (1) Syncope and collapse: Code(s): R55 - Syncope and collapse Status: Acute Assessment and Plan: No obvious etiology. With no orthostasis could be arrhythmia and will monitor. repeat echocardiogram EF 70% with grade 2 diastolic dysfunction . will probable discharge with a long-term monitor. As above tele PACs only. CT of the brain is unremarkable and she had an MR in December. fasting cortisol adequate at 13 (2) Uncontrolled hypertension: Code(s): I10 - Essential (primary) hypertension Status: Acute Assessment and Plan: Blood pressure elevated on admission but much better now. Resumed verapamil and enalapril and monitor closely HCTZ still on hold, daughter states that home dose of verapamil is daily but we have been given at b.i.d. with good results and should help for PACs also Continue to monitor and if becomes Arturo and will decrease dose (3) Hyponatremia: Code(s): E87.1 - Hypo-osmolality and hyponatremia Status: Acute Assessment and Plan: Sodium low and could be secondary to diuretic and SSRI with mild volume depletion and free water intake at home.. Gentle saline hydration overnight initially and still 126. TSH and fasting cortisol normal urine Na high and may be from HCTZ. Significantly during her last visit some 4 years ago sodium was only 135 Today down to 120 and apparently her daughter was pushing fluids yesterday. Will fluid restrict to 1500 mL per day and has seen by Nephrology further opinion (4) DVT prophylaxis: Code(s): Z29.9 - Encounter for prophylactic measures, unspecified Status: Acute Assessment and Plan: Low-dose Lovenox (5) Hypothyroidism: Code(s): E03.9 - Hypothyroidism, unspecified Status: Acute Assessment and Plan: Continue thyroid replacement and TSH normal Subjective Date/time seen: 04/30/20 14:08 Interval history: Date of visit 04/30. 84-year-old hypertensive female admitted with syncopal episode. She has had no further symptoms and no recurrent episodes . Monitor has had intermittent AFib but on review is only PACs. Exam Narrative: Exam Narrative: Blood pressure 146/76 pulse 76 afebrile Pupils equal reactive to light sclera anicteric Mouth normal Neck supple Lungs clear no wheezing consolidation CV no murmurs gallops rubs or clicks Abdomen soft nontender no masses Extremities without edema distal pulses are 1+ Neuro alert oriented x4 with no focal deficits, cranial nerves 2-12 are intact, Objective Data Vital Signs Vital Signs: Vital Signs - 24 hr 04/29/20 16:00 04/29/20 20:00 04/29/20 22:00 Temperature 36.4 C Pulse Rate 76 75 77 Respiratory Rate 16 Blood Pressure 144/59 H Pulse Oximetry 94 04/30/20 00:00 04/30/20 04:00 04/30/20 04:59 Temperature 36.1 C L Pulse Rate 54 L 83 59 L Respiratory Rate 18 Blood Pressure 126/50 L Pulse Oximetry 99 04/30/20 08:00 04/30/20 12:00 Temperature Pulse Rate 65 69 Respiratory Rate Blood Pressure Pulse Oximetry Intake/Output Intake/Output: Intake & Output 04/27/20 04/28/20 04/29/20 04/30/20 23:59 23:59 23:59 23:59 Intake Total 940 2712 2120 550 Output Total 200 1850 1420 Balance 740 862 700 550 Meds/Results Medications: Active Medications Generic Name Dose Route Start Last Admin Trade Name Freq PRN Reason Stop Dose Admin Acetaminophen 650 mg 04/27/20 12:34 04/29/20 00:15 Acetaminophen 325 Mg Tablet PO 650 mg Q4H PRN Administration Mild Pain (1-3) or Fever Calcium Carbonate 300 mg 04/27/20 17:00 04/30/20 08:22 Calcium Carbonate (Tums) 500 Mg (200 Mg Elemental) BY MOUTH 300 mg BID JARRET Administration Clotrimazole 1 applic 04/30/20 21:00 Betamethasone/Clotrimazole Cr 15 Gm Tube TOPICAL Q12HR [facility] Cyanocobalamin 1,000 mcg 04/28/20 09:00 04/30/20 08:22 Cyanocobalamin 1,000 Mcg Tablet PO 1,000 mcg RADHA
--- NOTE | 2020-04-30 16:42 | PM.CNNEP ---
Assessment and Plan Assessment and plan (1) Hyponatremia: Code(s): E87.1 - Hypo-osmolality and hyponatremia Status: Acute Assessment and Plan: appears acute on chronic sodium in August 2019 was 129mmol/L normal TSH and cortisol lowish -- check cosyntropin stim test was on SSRI and HCTZ prior to admission which could be culprit medications - HCTZ and citalopram on hold now acute drop in Na maybe due to increased free water fluid intake in the last 24 hours (increased free water intake apparently at the behest of family thinking this was needed given her syncopal episode) agree with fluid restriction goal of therapy is an increase in sodium by 4 - 6mmol/L (and no more then 8mmol/L) in 24 hours may need to consider use of 3% saline if falls below 120 for completeness, check SPEP, UPEP as well as serum/urine osmolality follow trend of repeat sodium levels (2) Syncope and collapse: Code(s): R55 - Syncope and collapse Status: Acute Assessment and Plan: etiology unclear Echo results noted no evidence of orthostasis possible arrhythmia? may need holter on discharge (3) Hypertension: Code(s): I10 - Essential (primary) hypertension Status: Acute Assessment and Plan: elevated on admission doing better at this time follow trend of hemodynamics Will continue to follow. History of Present Illness Reason for Consult Consult date: 04/30/20 Reason for consult: hyponatremia (acute on chronic) Chief Complaint Chief complaint: Syncope/uncontrolled hypertension/hyponatremia History of Present Illness Narrative: The patient is a 84 year old female with a past medical history as outlined below Who presented to [facility] emergency room following a syncopal episode. The patient on the day of admission was apparently walking in her home to for her kitchen when she apparently passed out without any warning. She apparently fell back and reportedly was unconscious for about 1-2 minutes before helped her up. There was no reported confusion following the syncopal episode. No apparent seizure activity was noted although she did have a loose bowel movement. Aside from this event she has and had no other issues or problems recently with regard to fevers, chills, nausea, vomiting, dizziness, lightheadedness, or palpitations. Workup and evaluation in the emergency room demonstrated the patient to actually quite hypertensive on initial assessment but in no acute distress. Routine blood test demonstrated evidence of hyponatremia which seems to be somewhat worse than her baseline as well. Given the hyponatremia in association with her elevated blood pressure, it was felt that hospitalization /admission was prudent for observation and further evaluation. Initially, the patient's blood pressure medications were adjusted which seem to improve her her blood pressure readings in general. She was initially given some IV fluids on the assumption perhaps maybe volume depletion was playing a role with her hyponatremia particularly since her daughter reported that she has been somewhat depressed and has not been eating and drinking very well. However, despite these interventions, her sodium actually worsened. Renal consultation was requested due to her acute on chronic hyponatremia. It would seem the patient has had some degree of chronic hyponatremia as her last sodium on record seven months ago demonstrated a value of 129 millimoles per L (August 2019). On admission, her sodium level is 124, increased to 126 but then suddenly dropped to 120 by labs done this morning. There is some concern that the value of one 20 May be secondary to the fact that she was told to increase her oral fluid intake by family thinking this was the cause for her syncopal episode since her admission to the hospital. In spite of this low sodium level, she does not appear to be acutely sympto
[2020-04-30 19:14] LABS: Sodium 118 mmol/L (137-145)
[2020-04-30] MEDS: SODIUM CHLORIDE 3% 300 ML 50 ML IV CONT (20:08)
[2020-04-30] MEDS: BETAMETHASONE/CLOTRIMAZOLE CR 15 GM TUBE 1 APPLIC TOPICAL (20:09)
[2020-04-30] MEDS: ACETAMINOPHEN 325 MG TABLET 650 MG PO (20:10)
[2020-04-30] MEDS: ENOXAPARIN 40 MG/0.4 ML SYRINGE SUB-Q (20:10)
[2020-04-30 23:10] LABS: Creatinine Urine 145.7 mg/dL; Total Protein Urine Random 9 mg/dL; Ur Ttl Prot Creatinine Ratio 0.06 mg/mg (0-0.20)
[2020-04-30 23:21] LABS: Sodium Urine Random 5 meq/L
[2020-05-01] VITALS (9 sets, daily range): BP systolic 134–147; BP diastolic 46–62; PULSE 59–96; RESP 12–20; TEMP 36.1–36.4; O2SAT 99
[2020-05-01 03:27] LABS: Albumin Level 3.5 g/dL (3.5-5.1); Anion Gap 4 mmol/L (8-16); Blood Urea Nitrogen 19 mg/dL (7-17); Carbon Dioxide 22 mmol/L (22-30); Chloride 100 mmol/L (98-107); Estimated CRCL calculation 39 ml/min; Estimated Glomerular Filt Rate > 60; Glucose 96 mg/dL (65-105); Phosphorus 3.1 mg/dL (2.5-4.5); Potassium 3.8 mmol/L (3.4-5.0); Sodium 126 mmol/L (137-145)
--- NOTE | 2020-05-01 04:41 | PC.NURSE ---
[id number] Lala cell phone number and exchange with results from timed [facility]
[2020-05-01] MEDS: DEXTROSE 5% IN WATER 500 ML 200 ML IV CONT (06:03)
[2020-05-01] MEDS: LEVOTHYROXINE SODIUM 112 MCG TABLET PO (06:04)
[2020-05-01] MEDS: CHOLECALCIFEROL 1,000 UNITS TABLET 2000 UNITS PO (08:12)
[2020-05-01] MEDS: VERAPAMIL HCL 180 MG TABLET ER PO ×2 (08:12→20:09)
[2020-05-01] MEDS: CALCIUM CARBONATE (TUMS) 500 MG (200 MG ELEMENTAL) 300 MG BY MOUTH ×2 (08:12→17:42)
[2020-05-01] MEDS: LORATADINE 10 MG TABLET PO (08:12)
[2020-05-01] MEDS: CYANOCOBALAMIN 1,000 MCG TABLET 1000 MCG PO (08:12)
[2020-05-01] MEDS: ENALAPRIL MALEATE 10 MG TABLET PO ×2 (08:12→17:42)
[2020-05-01] MEDS: BETAMETHASONE/CLOTRIMAZOLE CR 15 GM TUBE 1 APPLIC TOPICAL ×2 (08:13→20:16)
[2020-05-01 09:34] LABS: Sodium 125 mmol/L (137-145)
--- NOTE | 2020-05-01 12:11 | PM.IMPN ---
Progress Note: A&P Assessment and Plan (1) Syncope and collapse: Code(s): R55 - Syncope and collapse Status: Acute Assessment and Plan: No obvious etiology. With no orthostasis could be arrhythmia and will monitor. repeat echocardiogram EF 70% with grade 2 diastolic dysfunction . will probable discharge with a long-term monitor. As above tele PACs only and less with increased verapamil . CT of the brain is unremarkable and she had an MR in December. fasting cortisol adequate at 13 (2) Uncontrolled hypertension: Code(s): I10 - Essential (primary) hypertension Status: Acute Assessment and Plan: Blood pressure elevated on admission but much better now. Resumed verapamil and enalapril and monitor closely HCTZ still on hold, daughter states that home dose of verapamil is daily but we have been given at b.i.d(bid on home med list). with good results and should help for PACs also Continue to monitor and if becomes Arturo and will decrease dose (3) Hyponatremia: Code(s): E87.1 - Hypo-osmolality and hyponatremia Status: Acute Assessment and Plan: Sodium low and could be secondary to diuretic and SSRI with mild volume depletion and free water intake at home.. Gentle saline hydration overnight initially and still 126. TSH and fasting cortisol normal urine Na high and may be from HCTZ. Significantly during her last visit some 4 years ago sodium was only 135 04/30 down to 120 and apparently her daughter was pushing fluids 04/29 . Will fluid restrict to 1500 mL per day Na up to 126 this am after 3% saline. Nephrology may do ben stim test (4) DVT prophylaxis: Code(s): Z29.9 - Encounter for prophylactic measures, unspecified Status: Acute Assessment and Plan: Low-dose Lovenox (5) Hypothyroidism: Code(s): E03.9 - Hypothyroidism, unspecified Status: Acute Assessment and Plan: Continue thyroid replacement and TSH normal (6) Dementia: Code(s): F03.90 - Unspecified dementia without behavioral disturbance Status: Acute Assessment and Plan: No specific treatment following up with primary doctor Mabel and neurology Subjective Date/time seen: 05/01/20 12:11 Interval history: Date of visit 05/01. 84-year-old hypertensive female admitted with syncopal episode. She has had no further symptoms and no recurrent episodes . Monitor has had intermittent AFib but on review is only PACs. Exam Narrative: Exam Narrative: Blood pressure 146/54 pulse 70 afebrile comfortable in NAD sitting in chair Pupils equal reactive to light sclera anicteric Mouth normal Neck supple Lungs clear no wheezing or consolidation CV no murmurs gallops rubs or clicks Abdomen soft nontender no masses Extremities without edema distal pulses are 1+ Neuro alert oriented x4 but confused on details, with no focal deficits, cranial nerves 2-12 are intact, Objective Data Vital Signs Vital Signs: Vital Signs - 24 hr 04/30/20 14:00 04/30/20 16:00 04/30/20 17:40 Temperature 36.3 C L Pulse Rate 74 73 Respiratory Rate 16 Blood Pressure 106/46 L 120/58 L Pulse Oximetry 97 04/30/20 20:00 04/30/20 22:00 05/01/20 00:00 Temperature 36.3 C L Pulse Rate 72 72 96 Respiratory Rate 18 Blood Pressure 133/84 Pulse Oximetry 97 05/01/20 04:00 05/01/20 05:06 Temperature 36.4 C Pulse Rate 59 L 70 Respiratory Rate 20 Blood Pressure 147/53 H Pulse Oximetry 99 Intake/Output Intake/Output: Intake & Output 04/28/20 04/29/20 04/30/20 05/01/20 23:59 23:59 23:59 23:59 Intake Total 2712 2120 1540 540 Output Total 1850 1420 200 700 Balance 935 644 1232 -160 Meds/Results Medications: Active Medications Generic Name Dose Route Start Last Admin Trade Name Freq PRN Reason Stop Dose Admin Acetaminophen 650 mg 04/27/20 12:34 04/30/20 20:10 Acetaminophen 325 Mg Tablet PO 650 mg Q4H PRN Administration Mild Prakash
--- NOTE | 2020-05-01 12:45 | PM.PNNEP ---
Progress Note: A&P Assessment and Plan (1) Hyponatremia: Code(s): E87.1 - Hypo-osmolality and hyponatremia Status: Acute Assessment and Plan: appears acute on chronic sodium in August 2019 was 129mmol/L normal TSH and cortisol lowish -- check cosyntropin stim test was on SSRI and HCTZ prior to admission which could be culprit medications - HCTZ and citalopram on hold now acute drop in Na maybe due to increased free water fluid intake yesterday (increased free water intake apparently at the behest of family thinking this was needed given her syncopal episode) agree with fluid restriction goal of therapy is an increase in sodium by 4 - 6mmol/L (and no more then 8mmol/L) in 24 hours - s/p 3% saline yesterday - sodium went from 118 to 126mmol/L (borderline overcorrection) - s/p D5W and repeat sodium 125mmol/L - follow repeat sodium levels and may need further D5W +/- DDAVP follow-up on SPEP, UPEP as well as serum/urine osmolality follow trend of repeat sodium levels (2) Syncope and collapse: Code(s): R55 - Syncope and collapse Status: Acute Assessment and Plan: etiology unclear Echo results noted no evidence of orthostasis possible arrhythmia? may need holter on discharge (3) Hypertension: Code(s): I10 - Essential (primary) hypertension Status: Acute Assessment and Plan: elevated on admission doing better at this time given this issue, try to avoid use of salt tabs to correct #1 follow trend of hemodynamics Will continue to follow. Subjective Date/time seen: 05/01/20 12:45 Appears to be doing reasonably well at this time; s/p 3% saline yesterday but concerns for overcorrection so received D5W IVFs earlier this AM; no other acute issues/events overnight or earlier this AM; no apparent distress voiced at this time. Exam Narrative: Exam Narrative: General: WD/WN female in NAD Heart: normal S1 and S2; no rub Lungs: clear to auscultation Abdomen: soft, nontender, nondistended, positive bowel sounds Extremities: no cyanosis or clubbing; no edema Skin: warm and dry Objective Data Vital Signs Vital Signs: Vital Signs Temp Pulse Resp BP Pulse Ox 05/01/20 12:00 87 05/01/20 08:00 81 05/01/20 05:06 36.4 C 70 20 147/53 H 99 05/01/20 04:00 59 L 05/01/20 00:00 96 04/30/20 22:00 36.3 C L 72 18 133/84 97 04/30/20 20:00 72 04/30/20 17:40 120/58 L Intake/Output Intake/Output: Intake & Output 04/28/20 04/29/20 04/30/20 05/01/20 23:59 23:59 23:59 23:59 Intake Total 2712 2120 1540 1180 Output Total 1850 1420 200 700 Balance 822 816 8605 480 Meds/Results Medications: Active Medications Generic Name Dose Route Start Last Admin Trade Name Freq PRN Reason Stop Dose Admin Acetaminophen 650 mg 04/27/20 12:34 04/30/20 20:10 Acetaminophen 325 Mg Tablet PO 650 mg Q4H PRN Administration Mild Pain (1-3) or Fever Calcium Carbonate 300 mg 04/27/20 17:00 05/01/20 08:12 Calcium Carbonate (Tums) 500 Mg (200 Mg Elemental) BY MOUTH 300 mg BID JARRET Administration Clotrimazole 1 applic 04/30/20 21:00 05/01/20 08:13 Betamethasone/Clotrimazole Cr 15 Gm Tube TOPICAL 1 applic Q12HR JARRET Administration Cyanocobalamin 1,000 mcg 04/28/20 09:00 05/01/20 08:12 Cyanocobalamin 1,000 Mcg Tablet PO 1,000 mcg DAILY JARRET Administration Enalapril Maleate 10 mg 04/27/20 17:00 05/01/20 08:12 Enalapril Maleate 10 Mg Tablet PO 10 mg BID JARRET Administration Enoxaparin Sodium 40 mg 04/27/20 21:00 04/30/20 20:10 Enoxaparin 40 Mg/0.4 Ml Syringe SUB-Q 40 mg HS JARRET Administration Levothyroxine Sodium 112 mcg 04/29/20 06:30 05/01/20 06:04 Levothyroxine Sodium 112 Mcg Tablet PO 112 mcg DAILY@0630 JARRET Administration Loratadine 10 mg 04/28/20 09:00 05/01/20 08:12 Loratadine
[2020-05-01 14:06] LABS: Sodium 125 mmol/L (137-145)
[2020-05-01 18:27] LABS: Sodium 127 mmol/L (137-145)
[2020-05-01] MEDS: ACETAMINOPHEN 325 MG TABLET 650 MG PO (18:56)
[2020-05-01] MEDS: ENOXAPARIN 40 MG/0.4 ML SYRINGE SUB-Q (20:09)
[2020-05-01] MEDS: DEXTROSE 5% IN WATER 400 ML 200 ML IV CONT (20:09)
[2020-05-02] VITALS (7 sets, daily range): BP systolic 142–156; BP diastolic 50–63; PULSE 59–81; RESP 16–20; TEMP 36.3–36.9; O2SAT 96–100
[2020-05-02 00:11] LABS: Sodium 128 mmol/L (137-145)
[2020-05-02] MEDS: DESMOPRESSIN ACETATE 4 MCG/ML AMP 1 MCG SUB-Q (01:00)
[2020-05-02 05:51] LABS: Anion Gap 4 mmol/L (8-16); Blood Urea Nitrogen 18 mg/dL (7-17); Calcium 8.3 mg/dL (8.4-10.2); Carbon Dioxide 25 mmol/L (22-30); Chloride 100 mmol/L (98-107); Estimated CRCL calculation 39 ml/min; Estimated Glomerular Filt Rate > 60; Glucose 82 mg/dL (65-105); Sodium 129 mmol/L (137-145)
[2020-05-02] MEDS: LEVOTHYROXINE SODIUM 112 MCG TABLET PO (06:27)
--- NOTE | 2020-05-02 06:48 | ECG_ITS ---
Measurements Intervals [place] Rate: 65 P: 74 MD: 185 QRS: 44 QRSD: 86 T: 35 QT: 400 QTc: 417 Interpretive Statements SINUS RHYTHM WITH SINUS ARRHYTHMIA BASELINE ARTIFACT- I, II, III, AVR, AVL, AVF NORMAL ECG Electronically Signed On 05-02-2020 7:11:50 [employer] by Bao Yousif D.O.
--- NOTE | 2020-05-02 06:59 | PC.NURSE ---
Dr. River here to see pt and EKG ordered.
--- NOTE | 2020-05-02 07:02 | P.PNCROSS_ITS ---
Event Note Event Note Event Note: Called to bedside by nursing staff for acute chest pain. On my arrival the patient is complaining of pleuritic left sided chest pain with deep inspiration. STAT EKG and troponin were obtained. [place] was administered orally and the patient was sent to have a STAT CTA chest for PE protocol. I have discussed the patient in detail with the day time provider.
[2020-05-02 07:19] LABS: Cortisol Baseline 3.99 ug/dL
[2020-05-02 07:39] LABS: Troponin I < 0.012 ng/mL (0.000-0.034)
--- NOTE | 2020-05-02 07:42 | PC.NURSE ---
pt to CT via wheelchair for stat CT, no distress noted, pt transferred well
[2020-05-02] MEDS: ENALAPRIL MALEATE 10 MG TABLET PO (08:56)
[2020-05-02] MEDS: CALCIUM CARBONATE (TUMS) 500 MG (200 MG ELEMENTAL) 300 MG BY MOUTH (08:57)
[2020-05-02] MEDS: LORATADINE 10 MG TABLET PO (08:57)
[2020-05-02] MEDS: BETAMETHASONE/CLOTRIMAZOLE CR 15 GM TUBE 1 APPLIC TOPICAL (08:57)
[2020-05-02] MEDS: CHOLECALCIFEROL 1,000 UNITS TABLET 2000 UNITS PO (08:57)
[2020-05-02] MEDS: VERAPAMIL HCL 180 MG TABLET ER PO (08:57)
[2020-05-02] MEDS: CYANOCOBALAMIN 1,000 MCG TABLET 1000 MCG PO (08:57)
[2020-05-02] MEDS: ACETAMINOPHEN 325 MG TABLET 650 MG PO (09:00)
[2020-05-02] MEDS: COSYNTROPIN 0.25 MG/ML VIAL IV PUSH (09:03)
--- NOTE | 2020-05-02 09:53 | PCOTNOTE ---
Patient refused treatment this session due to getting no rest over the night. Family member in room stated she did not sleep last night. Pt. stated feeling icky
--- NOTE | 2020-05-02 14:28 | PM.DS ---
DS: Admitting Diagnosis Admitting Diagnosis Admitting Diagnosis: syncope DS: Discharge Diagnosis Discharge Diagnosis (1) Syncope and collapse: Code(s): R55 - Syncope and collapse Status: Acute Assessment and Plan: No obvious etiology. Was noted to have elevated renal function so consider dehydration with orthostasis but BP elevated on admission. Could be related to an arrhythmia. CT of the brain is unremarkable and she had an MR in December. Repeat echo EF 70% with grade 2 diastolic dysfunction. Tele showing no significant dysrhythmias. Fasting cortisol adequate at 13 (cortisol stim test okay as well). Plan for discharge with a monitor. Patient had taken Citalopram one dose the day before the event; this was not continued due to the low sodium. (2) Uncontrolled hypertension: Code(s): I10 - Essential (primary) hypertension Status: Acute Assessment and Plan: Blood pressure elevated on admission. Resumed verapamil and enalapril and BP much better now. HCTZ stopped due to the low sodium. Daughter states that home dose of verapamil is daily but we have been given at b.i.d(bid on home med list) with good results and should help for PACs also. Home with outer diameter grinder tool. (3) Hyponatremia: Code(s): E87.1 - Hypo-osmolality and hyponatremia Status: Acute Assessment and Plan: Sodium low and could be secondary to diuretic and SSRI with mild volume depletion and free water intake at home. Instructed to limit free water. Gentle saline hydration given. TSH and fasting cortisol normal. Urine Na high and may be from HCTZ but repeat better. Has hx of low sodium. Nephrolgy was involved in her care. Discussed with nephrology. Na better at 129 today. Follow as outpatinet. (4) Hypothyroidism: Code(s): E03.9 - Hypothyroidism, unspecified Status: Acute Assessment and Plan: TSH normal. Continue thyroid replacement (5) Dementia: Code(s): F03.90 - Unspecified dementia without behavioral disturbance Status: Acute Assessment and Plan: No specific treatment. She did complain of pleuritic chest pain on the morning of discharge felt related to 'nerves'. She was paranoid and anxious but better once dtr arrived. EKG showing no acute changes and Trop negative. CTA chest negative for PE. Follow up with primary doctor Mabel and neurology DS: Summary Hospital Course Reason for hospitalization: 84-year-old female here after sustaining a syncopal episode. Please see H&P for details. Hospital Course: Please see above for details of hospital course. Status at Discharge Cognitive/behavioral status at discharge: Patient is stable for discharge Time Spent with Patient Time attestation: Total time spent providing and/or coordinating discharge services: 35 minutes Time spent: Greater than 30 minutes Exam Narrative: Exam Narrative: AF 98.4 156/63 70 20 100% ra Gen - NARD sitting up in a chair Chest - CTA bilaterally, nml RR CV - RRR S1/S2. Telemetry showing no significant dysrhythmias Abd - Soft, NT/ND, Positive BS Ext - No pedal edema Neuro - Alert and appropriate. Nonfocal exam. Psych - Nml mood and affect Skin - Warm and dry DS: Data Data Completed and Pending Labs on day of discharge: Labs from last 24 hours 05/02/20 05/02/20 05/02/20 10:09 09:40 07:10 Sodium Potassium Chloride Carbon Dioxide Anion Gap BUN Creatinine Estim Creat Clear Calc Estimated GFR Glucose Calcium Troponin I < 0.012 Cortisol Baseline Cortisol Resp 30 Min 25.80 Cortisol Resp 60 Min 31.90 05/02/20 05/02/20 05/01/20 04:50 04:48 23:50 Sodium 129 L 128 L Potassium 4.0 Chloride 100 Carbon Dioxide 25 Anion Gap 4 L BUN 18 H Creatinine 0.80 Estim Creat Clear Calc 39 Estimated GFR > 60 Glucose 82 Calcium 8.3 L Troponin I Cortisol Baseline
[2020-05-04 05:38] LABS: Osmolality, Urine 396 mOsm/kg (50-1200)
[2020-05-04 11:29] LABS: Kappa\\Lambda Light Chains 1.06 (0.26-1.65); Lambda Light Chain 15.7 mg/L (5.7-26.3)
[2020-05-04 20:35] LABS: Albumin 3.6 g/dL (3.8-4.8); Alpha 1 Globulin 0.3 g/dL (0.2-0.3); Alpha 2 Globulin 0.7 g/dL (0.5-0.9); Beta 1 Globulin 0.4 g/dL (0.4-0.6); Gamma Globulin 0.6 g/dL (0.8-1.7); Interpretation Consistent with; Protein, Total 5.9 g/dL (6.1-8.1)
[2020-05-05 16:17] LABS: Chloride Rand Ur <20 mmol/L (32-290); Creatinine Random Urine 131 mg/dL (20-275)
[2020-05-06 22:57] LABS: Creatinine, Random Urine 132 mg/dL (20-275); Total Protein/Creatinine Ratio 152 mg/g creat (21-161)
== END 2020-05-02 17:35 | disposition home health service (06) | DRG 312 ==
LOC: ANHED 10:05 → ANH2MED 11:44
PROVIDERS: Internal Medicine Nephrology; Admitting Provider Internal Medicine; Emergency Provider Emergency Medicine; PCP Internal Medicine; Visit Provider Family Medicine
DX: R55 Syncope and collapse (principal); E87.1 Hypo-osmolality and hyponatremia; F03.90 Unspecified dementia, unspecified severity, without behavioral disturbance, psychotic disturbance, mood disturbance, and anxiety; I10 Essential (primary) hypertension; E03.9 Hypothyroidism, unspecified; K58.9 Irritable bowel syndrome, unspecified; Z79.899 Other long term (current) drug therapy; Z85.820 Personal history of malignant melanoma of skin
CPT/HCPCS: 36415; 70450; 71275; 80048; 80053; 80069; 81003; 81050; 82436; 82533; 82570; 83883; 83930; 83935; 84155; 84156; 84165; 84166; 84295; 84300; 84443; 84484; 85025; 93005; 93306; 96361; 96372; 96374; 97110; 97116; 97161; 97165; 97530; 97535; 99285; A9270; G0378; J0360; J0834; J1650; J2597; J7030; J7040; J7060; J7131; Q9967

== ENCOUNTER 2020-06-03 12:59 | Outpatient (CLI) | payer MEDICARE, SELFPAY | END 2020-06-03 13:00 | disposition home or self-care (01) | LOC: ANHCOVIDVC 12:59 | PROVIDERS: PCP Internal Medicine | DX: Z23 Encounter for immunization (principal) | CPT/HCPCS: 0001A; 91300 ==

== ENCOUNTER 2020-06-24 13:00 | Outpatient (CLI) | payer MEDICARE, SELFPAY | END 2020-06-24 13:01 | disposition home or self-care (01) | LOC: ANHCOVIDVC 13:00 | PROVIDERS: PCP Internal Medicine | DX: Z23 Encounter for immunization (principal) | CPT/HCPCS: 0002A; 91300 ==

== ENCOUNTER 2020-10-12 14:08 | Outpatient (CLI) | payer MEDICARE, SELFPAY ==
--- NOTE | ~2020-10-12 | MM_ITS ---
EXAMINATION: MM screening isabella BI w gulshan HISTORY: Screening mammogram TECHNIQUE: Craniocaudal and mediolateral oblique 3-D tomosynthesis images were obtained and synthetic 2-D images were generated. CAD analysis was submitted and interpreted. COMPARISON: 04/15/2019, 03/12/2018, 02/07/2016 BREAST PARENCHYMAL COMPOSITION: There are scattered areas of fibroglandular density. FINDINGS: Waxing and waning bilateral breast masses are consistent with cysts. There is no evidence o f suspicious mass, calcification, or architectural distortion to suggest malignancy in either breast. There has been no suspicious interval change. IMPRESSION: 1. No mammographic evidence of malignancy. 2. Recommend routine screening mammography while the patient remains in good health. BI-RADS Category 2: Benign finding(s). Reviewed, dictated and finalized at location A. IMPRESSION: 1. No mammographic evidence of malignancy. 2. Recommend routine screening mammography while the patient remains in good he alth. BI-RADS Category 2: Benign finding(s).
== END 2020-10-12 14:09 | disposition home or self-care (01) ==
LOC: ANHIMG 14:12
PROVIDERS: PCP Internal Medicine; Visit Provider Obstetrics & Gynecology
DX: Z12.31 Encounter for screening mammogram for malignant neoplasm of breast (principal)
CPT/HCPCS: 77063; 77067

== ENCOUNTER 2021-11-17 15:11 | Outpatient (CLI) | payer MEDICARE, SELFPAY ==
--- NOTE | ~2021-11-17 | MM_ITS ---
EXAMINATION: MM screening isabella BI w gulshan HISTORY: Screening mammogram TECHNIQUE: Craniocaudal and mediolateral oblique 3-D tomosynthesis images were obtained and synthetic 2-D images were generated. CAD analysis was submitted and interpreted. COMPARISON: 10/12/2020, 04/15/2019, 03/12/2018 bilateral screening mammogram examinations BREAST PARENCHYMAL COMPOSITION: There are scattered areas of fibroglandular density. FINDINGS: Occasional benign calcifications. There is no evidence of suspicious mass, calcification, o r architectural distortion to suggest malignancy in either breast. There has been no suspicious inter maria change. IMPRESSION: 1. No mammographic evidence of malignancy. 2. Recommend routine screening mammography in one year. BI-RADS Category 2: Benign finding(s). Reviewed, dictated and finalized at location A.
== END 2021-11-17 15:12 | disposition home or self-care (01) ==
LOC: ANHIMG 15:16
PROVIDERS: PCP Internal Medicine; Visit Provider Obstetrics & Gynecology
DX: Z12.31 Encounter for screening mammogram for malignant neoplasm of breast (principal)
CPT/HCPCS: 77063; 77067

== ENCOUNTER 2022-06-16 15:08 | Emergency (ER) | payer MEDICARE, SELFPAY ==
[2022-06-16 15:29] VITALS: BP 177/59; PULSE 83; RESP 16; TEMP 36.2; O2SAT 97
--- NOTE | 2022-06-16 15:38 | ED.URI ---
HPI - URI/Sore Throat General Chief Complaint: Upper Respiratory Infection Stated Complaint: Sinus/ Head Pain Time Seen by Provider: 06/16/22 15:39 Source: patient Mode of arrival: ambulatory Limitations: no limitations History of Present Illness HPI Narrative: patient is is 86-year-old female that presents with pain to bone behind the left ear that is sharp and shooting that started yesterday. reports pain when opening mouth and eating. also reports congestion an intermittent sore throat. patient takes a daily Claritin but has has not taken anything else for pain. patient denies any headache, changes in vision, pain radiating down the neck. Patient was seen a dentist a month ago and had x-rays. Related Data Home Medications Medication Instructions Recorded Confirmed cyanocobalamin (vitamin B-12) 1,000 mcg PO DAILY 09/28/19 06/16/22 1,000 mcg tablet (Vitamin B-12) estradiol 2 mg tablet 4 mg PO BID 09/28/19 06/16/22 levothyroxine 112 mcg tablet 137 mcg PO DAILY 09/28/19 06/16/22 loratadine 10 mg tablet (Claritin) 10 mg PO DAILY 09/28/19 06/16/22 verapamil 180 mg tablet,extended 180 mg PO BID 09/28/19 06/16/22 release acetaminophen 325 mg tablet 325 mg PO DAILY 04/27/20 06/16/22 (Tylenol) calcium carbonate 300 mg (750 mg) 750 mg PO BID 04/27/20 06/16/22 chewable tablet (Tums) cholecalciferol (vitamin D3) 50 50 mcg PO DAILY 04/27/20 06/16/22 mcg (2,000 unit) capsule (Vitamin D3) estradiol 0.01% (0.1 mg/gram) 0.1 applic vaginal 2XW 04/27/20 06/16/22 vaginal cream Natural Vitamin E 1 tab-cap PO DAILY 06/16/22 06/16/22 Saccharomyces boulardii 250 mg 250 mg PO DAILY 06/16/22 06/16/22 capsule (Florastor) ascorbic acid (vitamin C) 500 mg 500 mg PO DAILY 06/16/22 06/16/22 tablet (Vitamin C) hydralazine 50 mg tablet 50 mg PO TID 06/16/22 06/16/22 mirtazapine 15 mg tablet 7.5 mg PO DAILY 06/16/22 06/16/22 Allergies Allergy/AdvReac Type Severity Reaction Status Date / Time erythromycin base Allergy Unknown Unknown Verified 06/16/22 15:11 Sulfa (Sulfonamide Allergy Unknown Unknown Verified 06/16/22 15:11 Antibiotics) enalapril Allergy Swelling Verified 06/16/22 15:33 NSAIDS (Non-Steroidal Allergy Gastrointestinal Verified 06/16/22 15:52 Anti-Inflamma Upset Review of Systems Review of Systems: All systems reviewed & are unremarkable except as noted in HPI and below Constitutional: Constitutional: Denies body ache(s), Denies fever(s), Denies headache(s), Denies malaise and Denies weakness Eyes: Eyes: Denies loss of vision ENT: Reports otalgia, Denies headache(s), Denies nasal congestion, Denies sinus pain and Denies sore throat Cardiovascular: Cardiovascular: Denies chest pain, Denies irregular heart rhythm and Denies dyspnea Respiratory: Respiratory: Denies cough and Denies dyspnea Gastrointestinal: Gastrointestinal: Denies abdominal pain, Denies melena, Denies hematochezia, Denies diarrhea, Denies nausea and Denies vomiting Musculoskeletal: Musculoskeletal: Denies back pain, Denies myalgias and Denies arthralgias Integumentary/Breasts: Skin/Breast: Denies pruritus and Denies rash Neurologic: Denies headache(s), Denies loss of vision and Denies weakness Psychiatric: Psychiatric: Reports no additional psychiatric complaints [facility] Past Medical History Medical History (Updated 06/16/22 @ 16:07 by Sarai Smalls, ANISA) Arthritis Hypertension Hypothyroidism IBS (irritable bowel syndrome) Skin cancer (melanoma) Surgical History Surgical History H/O: hysterectomy History of cervical spinal surgery Family History Family History (Updated 04/27/20 @ 13:06 by Hong DuMD) Father , In his 80s thought to be natural causes No problems noted. Mother , In her 80s COPD No problems noted. Social History Social History Social His
== END 2022-06-16 16:10 | disposition home or self-care (01) ==
PROVIDERS: Emergency Provider Nurse Practitioner Family; PCP Internal Medicine
DX: H92.02 Otalgia, left ear (principal); I10 Essential (primary) hypertension; E03.9 Hypothyroidism, unspecified; Z85.828 Personal history of other malignant neoplasm of skin
CPT/HCPCS: 99211; G0463

== ENCOUNTER 2023-07-22 15:16 | Outpatient (CLI) | payer MEDICARE, SELFPAY ==
--- NOTE | ~2023-07-22 | MM_ITS ---
EXAMINATION: MM screening isabella BI w gulshan HISTORY: Screening mammogram TECHNIQUE: Craniocaudal and mediolateral oblique 3-D tomosynthesis images were obtained and synthetic 2-D images were generated. CAD analysis was submitted and interpreted. COMPARISON: 11/17/2021, 10/12/2020 bilateral screening mammogram examinations BREAST PARENCHYMAL COMPOSITION: There are scattered areas of fibroglandular density. FINDINGS: There is no evidence of suspicious mass, calcification, or architectural distortion to sugg est malignancy in either breast. There has been no suspicious interval change. IMPRESSION: 1. No mammographic evidence of malignancy. 2. Recommend routine screening mammography in one year. BI-RADS Category 1: Negative Reviewed, dictated and finalized at location A.
== END 2023-07-22 15:17 | disposition home or self-care (01) ==
LOC: ANHIMG 15:33
PROVIDERS: PCP Internal Medicine; Visit Provider Obstetrics & Gynecology
DX: Z12.31 Encounter for screening mammogram for malignant neoplasm of breast (principal)
CPT/HCPCS: 77063; 77067

== ENCOUNTER 2024-07-30 14:35 | Outpatient (CLI) | payer MEDICARE, SELFPAY ==
--- NOTE | ~2024-07-30 | MM_ITS ---
EXAMINATION: MM screening isabella BI w gulshan HISTORY: Screening TECHNIQUE: Craniocaudal and mediolateral oblique 3-D tomosynthesis images were obtained and synthetic 2-D images were generated. CAD analysis was submitted and interpreted. COMPARISON: Comparison to multiple prior studies sequentially, with oldest reviewed study dated 05/2016. BREAST PARENCHYMAL COMPOSITION: Dense: The breasts are heterogeneously dense, which may obscure small masses FINDINGS: There is no evidence of suspicious mass, calcification, or architectural distortion to sugg est malignancy in either breast. There has been no suspicious interval change. IMPRESSION: 1. No mammographic evidence of malignancy. 2. Recommend routine screening mammography in one year. BI-RADS Category 1: Negative Reviewed, dictated and finalized at location A.
--- OUTSIDE RECORDS SUMMARY | 2024-07-30 15:21 | XMS_ITS | Referral Summary ---
Author Organization [facility] Address [address] [place] [address] Care Team Providers Care Roadmaster Name Role Phone Jamaal Monroe MD Primary Care Provider [phone] Allergies Active Allergy Reactions Criticality Noted Date Comments Ciprofloxacin Angioedema High 02/26/2023 Enalapril-Hydrochlorothiazide Dizziness, Swelling,Swoll en tongue High 03/31/2021 Erythromycin Hives Medium 08/23/2017 Nitrofurantoin Joint pain Low 02/26/2024 Sulfa (Sulfonamide Antibiotics) Hives Medium 07/19/2010 Tramadol Hives,Itching,Swelling Medium 09/16/2018 Medications calcium carbonate-jojo min D3 1,250mg (500mg elemental) - 200 units per tablet Take 1 tablet by mouth daily Active acetaminophen (TYLENOL) 500 mg tablet Take 1 tablet (500 mg total) by mouth 2 (two) times a day after breakfast and lunch Active cyanocobalamin (Vitamin B-12) 100 mcg tabletIndicati ons:Prevention of Vitamin B12 Deficiency Take 1 tablet (100 mcg total) by mouth daily Active ascorbic acid (VITAMIN C) 500 mg tablet,chewabl e Take 1 tablet/chew tab (500 mg total) by mouth daily Active cholecalcifero l (VITAMIN D-3) 2,000 unit tablet Take 1 tablet (2,000 Units total) by mouth daily Active loratadine (CLARITIN) 10 mg tablet Take 1 tablet (10 mg total) by mouth daily Active Saccharomyces boulardii (FLORASTOR) 250 mg capsule Take 1 capsule (250 mg total) by mouth daily Active vitamin E (AQUASOL E) 400 unit capsule Take 1 capsule (400 Units total) by mouth daily Active hydrALAZINE (APRESOLINE) 50 mg tablet TAKE 1 TABLET BY MOUTH THREE TIMES DAILY 42 tablet 23 03/08/20 22 Active levothyroxine (SYNTHROID) 137 mcg tablet TAKE 1 TABLET BY MOUTH ONCE DAILY 14 tablet 23 03/08/20 22 Active clotrimazole-b etamethasone (LOTRISONE) cream Apply topically 2 (two) times a day 30 g 1 06/21/19 23 Active ondansetron (ZOFRAN) 4 mg tablet Take 1 tablet (4 mg total) by mouth every 8 (eight) hours as needed for nausea or vomiting 20 tablet 07/18/19 23 Active estradioL (ESTRACE) 2 mg tablet TAKE 1 TABLET BY MOUTH ONCE DAILY 14 tablet 23 07/27/[address] (PROTONIX) 40 mg EC tablet TAKE 1 TABLET BY MOUTH ONCE DAILY 14 tablet 23 07/27/19 23 Active HYDROcodone-ac etaminophen (NORCO) 5-325 mg per tablet TAKE 1/2 TAB BY MOUTH EVERY 6 HOURS NEEDED *BLISTER* 30 tablet 11/16/19 23 Active verapamil SR (CALAN SR) 180 mg CR tablet Take 1 tablet (180 mg total) by mouth 2 (two) times a day 05/01/19 24 Active fluconazole (DIFLUCAN) 150 mg tablet TAKE 1 TABLET BY MOUTH DIRECTED ON DAYS 1,3 AND 7. 06/07/19 24 Active estradioL (ESTRACE) 0.01 % (0.1 mg/gram) vaginal cream APPLY VAGINALLY ONCE NIGHTLY FOR ONE WEEK, THEN EVERY SATURDAY, SATURDAY, AND SATURDAY 43 g 02/19/20 24 Active mirtazapine (REMERON) 15 mg tablet Take 1 tablet (15 mg total) by mouth nightly 30 tablet 03/17/20 24 Active enalapril (VASOTEC) 10 mg tablet TAKE 1 TABLET BY MOUTH TWICE DAILY 28 tablet 23 08/26/19 21 021 Discontinued Active Problems Problem Noted Date Diagnosed Date Recurrent UTI 08/23/2023 Acute otalgia, left 06/26/2022 Bilateral impacted cerumen 06/26/2022 Herpes zoster without complication 06/26/2022 Late onset Alzheimer's disea se without behavioral disturbance 10/26/2020 Hyponatremia 05/10/2020 Assessment & Plan (05/10/2020 3:30 PM CANT HOOKER): Check BMP at this time Hypothyroidism 05/10/2020 Assessment & Plan (05/10/2020 3:30 PM CANT HOOKER): Check TSH Spondylolisthesis of lumbar region 03/09/2020 Assessment & Plan (05/10/2020 3:30 PM CANT HOOKER): To have a another injection at her back shortly his Essential hypertension 01/05/2020 Assessment & Plan (05/10/2020 3:30 PM CANT HOOKER): Patient's blood pressure is doing well continue current medication Assessment & Plan (01/05/2020 12:16 PM CDT): Blood pressure now at target. Blood pressure by my exam 122/78. Will continue present Rx Memory loss 01/05/2020 Assessment & Plan (05/10/2020 3:30 PM CANT HOOKER): Continue current medications will try mirtazapine 7.5 HS Assessment & Plan (01/05/2020 12:17 PM CDT): Patient here today for evaluation of her memory loss. Plan at this time is to have her see Neurology in April. We did discuss the possibility of using donepezil but due to side effect profile they would prefer to withhold this at this time. She has stopped her nortriptyline in its entirety. She has reduced her alprazolam use to half a tablet at bedtime. She is aware that this may be contributing to falls as well as to memory issues. She will discuss this further with Neurology. Immunizations Immunization Administration Dates Next Due Influenza, Quadrivalent, Hig h Dose, Preservative Free, Intrr 12/31/2019,12/31/2019 Influenza, Quadrivalent, Rec ombinant, Egg Free, Preservative Free, Intramuscular 01/14/2019 Influenza, Trivalent, Adjuva nted, Intramuscular 01/08/2018,01/07/2018,01/23/2017 Influenza, Trivalent, High D ose, Split, Preservative Free, Intramuscular 01/05/2015,01/02/2015 Influenza, Trivalent, IM (MDV) 01/19/2014,2012 Influenza, Trivalent, Preser vative Free, Intramuscular 11/30/2013,01/14/2013,11/30/2012 Influenza, Unspecified 01/01/2023 Pfizer SARS-CoV-2 Monovalent Vaccination (12+ Yrs) PURPLE 10/06/2021 ZOSTER Recombinant 03/11/2023,12/21/2022 Social History Tobacco Use Types Packs/Day Years Used Date Smoking Tobacco: Never Smokeless Tobacco: Never Tobacco Cessation:Counseling Given: Not Answered Alcohol Use Standard Drinks/Week Comments No 0 (1 standard drink = 0.6 oz pur e alcohol) Personal Safety Answer Date Recorded Have you ever been in or are you currently in a harmful physical or emotional relationship or is someone making you feel afraid or unsafe? Denies 05/31/2023 Comments No Sex and Gender Information Value Date Recorded Sex Assigned at Not on file Legal Sex Female 7:50 PM CANT HOOKER Gender Identity Not on file Sexual Orientation Not on file Last Filed Vital Signs Vital Sign Reading Time Taken Comments Blood Pressure 175/72 02/26/2024 11:07 AM CANT HOOKER Pulse 73 02/26/2024 11:07 AM CANT HOOKER Temperature 36.7 C (98.1 F) 05/31/2023 5:45 PM CANT HOOKER Respiratory Rate 19 05/31/2023 8:30 PM CANT HOOKER Oxygen Saturation 97% 02/26/2024 11:07 AM CANT HOOKER Inhaled Oxygen Concentration - - Weight 49.4 kg (109 lb) 02/26/2024 11:07 AM CANT HOOKER Height 162.6 cm (5' 4 ) 02/26/2024 11:07 AM CANT HOOKER Body Mass Index 18.71 02/26/2024 11:07 AM CANT HOOKER Plan of Treatment Not on file Insurance MEDICARE [place] [employer] MEDICARE [employer] SENIOR SUPPLEMENT MEDICARE [employer] MEDICARE [employer] Advance Directives For more information, please contact: [phone] Documents on File Type Date Recorded Patient Senior Qa Analyst Expl anation ADVANCE DIRECTIVE 06/03/2023 2:58 PM POLST - Phys Order for PT Preferences ADVANCE DIRECTIVE 02/08/2021 1:07 PM POLS T - PHYS ORDER FOR PT PREFERENCES Care Teams Roadmaster Relationship Specialty Start Date End Date Jamaal Monroe MD [address] [address] PCP - General 08/28/16
--- OUTSIDE RECORDS SUMMARY | 2024-07-30 15:21 | XMS_ITS | Continuity of Care Document ---
Author Organization [facility] Address [address] [place] [address] Phone Care Team Providers Care Qa Lead Name Role Phone Hernández OD, Nicholas Unavailable Unavailable Procedures Procedure Date Contact Lens Check Eye Exam & Treatment Contact Lens Assessment Eye Exam & Treatment No Script Refraction No Charge Contact Lens Check No Charge Contact Lens Check No Charge Contact Lens Check Eye Exam & Treatment Refraction Eye Exam & Treatment Refraction Visual Functional Status Assessed Advance Directives Directive Yes / No Effective Date File Name No Information Encounters Encounter Description Practice Location Reason(s) For Visit Diagnoses Date Provider Providers Copied on Encounter [facility], [address], [place], [place], [id number], tel:[phone] [facility] No Information Oct-0 1-201 0 Hernández OD Nicholas. [address] , [address], [place], [address], [place]. tel:[phone] [facility], [address], [place], [place], [id number], [place] tel:[phone] [facility] No Information Sep-2 4-201 0 Hernández OD Nicholas. [address] , [address], [place], [address], [place]. tel:[phone] [facility], [address], [place], [place], [id number], [place] tel:[phone] [facility] No Information Sep-2 4-200 9 Hernández OD Nicohlas. [address] , [address], [place], [place], [facility], . tel:[phone] [facility], [address], [place], [place], [id number], [place] tel:[phone] [facility] No Information Sep-1 1-200 8 Hernández OD Nicholas. [address] , [address], [place], [place], [facility], [place]. tel:[phone] [facility], [address], [place], [place], [id number], [place] tel:[phone] [facility] No Information Sep-0 4-200 8 Hernández OD Nicholas. [address] , [address], [place], [place], [facility], [place]. tel:[phone] [facility], [address], [place], [place], [id number], [place] tel:[phone] [facility] No Information Aug-2 8-200 8 Hernández OD Nicholas. [address] , [address], [place], [facility], [place]. tel:[phone] [facility], [address], [place], [place], [address], [place] tel:[phone] [facility] No Information Aug-2 1-200 8 Hernández OD Nicholas. [address], [place], [facility], [place]. tel:[phone] [facility], [address], [place], [place], [address], [place] tel:[phone] [facility] No Information 1-200 7 Hernández OD Nicholas. [address] , [address], [place], [address], [place]. tel:[phone] Family History Family Member Type Diagnosis Age At Onset No Information Payers Payer name Insurance type Covered green party ID Authoriza tion(s) No Information Social History Type Description Quantity Date Captured Comments Sex Female Smoking Status No Information Chief Complaint And Reason For Visit No Information Reason For Referral Reason For Referral No Information History Of Present Illness Encounter Date Complaint History Of Prese nt Illness No Information Functional Status Date Functional Assessmen t No Information Instructions Date Instruction Additional Infor mation No Information Assessments Type Assessment Date No Information Patient Care Teams Name Effective Dates (start - stop) Status Members No Information
--- OUTSIDE RECORDS SUMMARY | 2024-07-30 15:21 | XMS_ITS | Clinical Summary ---
Author Organization [facility] Address [address] [place] [address] Care Team Providers Care Blood Donor Recruiter Supervisor Name Role Phone Jamaal Monroe MD Primary Care Provider [phone] Allergies Active Allergy Reactions Criticality Noted Date [...] 05/10/2020 Assessment & Plan (05/10/2020 3:30 PM MATTRESS STRIPPER): Check BMP at this time Hypothyroidism 05/10/2020 Assessment & Plan (05/10/2020 3:30 PM MATTRESS STRIPPER): Check TSH Spondylolisthesis of lumbar region 03/09/2020 Assessment & Plan (05/10/2020 3:30 PM MATTRESS STRIPPER): To have a another injection at her back shortly his Essential hypertension 01/05/2020 Assessment & Plan (05/10/2020 3:30 PM MATTRESS STRIPPER): Patient's blood pressure is doing well continue current medication Assessment & Plan (01/05/2020 12:16 PM CDT): Blood pressure now at target. Blood pressure by my exam 122/78. Will continue present Rx Memory loss 01/05/2020 Assessment & Plan (05/10/2020 3:30 PM MATTRESS STRIPPER): Continue current medications will try mirtazapine 7.5 [...] (12+ Yrs) PURPLE 10/06/2021 ZOSTER Recombinant 03/11/2023,12/21/2022 Surgical History Surgery Date Site/Laterality Comments VT TOTAL ABDOMINAL HYSTERECT W/WO RMVL TUBE OVARY Hysterectomy - (Added by TW Conv) NECK SURGERY Neck Surgery - (Added by TW Conv) Medical History Medical History Date Comments Personal history of other di seases of the circulatory system History of hypertension - (A dded by TW Conv) Personal history of malignan t melanoma of skin History of malignant melanom a - Malignant Melanoma Of The Skin (Added by TW Conv) Melanoma (HCC) Hypertension Allergic rhinitis Anxiety Thyroid disease Family History Medical History Relation Name Comments Basal cell carcinoma Brother Family history of basal cell carcinoma - (Added by TW Conv) Arthritis Mother Family history of arthritis - (Added by TW Conv) Blood Clot Mother Family history of blood clots - (Added by TW Conv) Hypertension Mother Family history of hypertension - (Added by TW Conv) Lung disease Mother Lung trouble - (Added by TW Conv) Stroke Mother Family history of cerebrovascular accident - (Added by TW Conv) Hypertension Other 1 Hypertension - (Added by TW Conv) Stroke Other 2 Stroke Syndrome - (Added by TW Conv) Relation Name Status Comments Brother Mother Other 1 Other 2 Social History Tobacco Use Types Packs/Day Years [...] on file Legal Sex Female 7:50 PM MATTRESS STRIPPER Gender Identity Not on file Sexual Orientation Not on file Obstetrics History Last Filed Vital Signs Vital Sign Reading Time Taken Comments Blood Pressure 175/72 02/26/2024 11:07 AM MATTRESS STRIPPER Pulse 73 02/26/2024 11:07 AM MATTRESS STRIPPER Temperature 36.7 C (98.1 F) 05/31/2023 5:45 PM MATTRESS STRIPPER Respiratory Rate 19 05/31/2023 8:30 PM MATTRESS STRIPPER Oxygen Saturation 97% 02/26/2024 11:07 AM MATTRESS STRIPPER Inhaled Oxygen Concentration - - Weight 49.4 kg (109 lb) 02/26/2024 11:07 AM MATTRESS STRIPPER Height 162.6 cm (5' 4 ) 02/26/2024 11:07 AM MATTRESS STRIPPER Body Mass Index 18.71 02/26/2024 11:07 AM MATTRESS STRIPPER Plan of Treatment Health Maintenance Due Date Last Done Comments Depression Screening 1935 Fall Risk Assessment 1935 DTaP/Tdap/Td Vaccine (1 - Tdap) 10/30/1946 Hepatitis B Screening 10/30/1953 Well Visit 65+ 10/30/2000 Covid-19 Vaccine ( season) 2023 10/06/2021, 01/24/2021, 06/24/2020, Additional history exists Pneumococcal vaccine 65+ (1 of 1 - PCV) 08/22/2024 Postponed from 10/30/1985 (Patient declined, but will receive in the future) Influenza Vaccine (Season Ended) 2024 01/01/2023, 12/31/2019, 12/31/2019, Additional history exists Zoster Vaccine Completed 03/11/2023, 12/21/2022 Insurance MEDICARE Member Subscriber Plan / Payer (Ef fective 2000-Present) Name:DENA ZURITA Member ID:[id number] Relation to Subscriber:Self Name:Dena Zurita Subscriber ID:[id number] Payer ID:[id number] Group ID:Not on file Type:MEDICARE TRADITIONAL Address: [address] [address] [place] [address] [facility] MEDICARE [employer] SENIOR SUPPLEMENT MEDICARE [facility] [place] [address] MEDICARE [facility] Advance Directives For more information, please contact: [phone] Documents on File Type Date Recorded Patient Coverage Analyst Expl anation ADVANCE DIRECTIVE 06/03/2023 2:58 PM POLST - Phys Order for PT Preferences ADVANCE DIRECTIVE 02/08/2021 1:07 PM POLS T - PHYS ORDER FOR PT PREFERENCES Care Teams Blood Donor Recruiter Supervisor Relationship Specialty Start Date End Date Jamaal Monroe MD [address] [facility] [address], [place] [address] PCP - General 08/28/16
== END 2024-07-30 14:36 | disposition home or self-care (01) ==
PROVIDERS: PCP Internal Medicine; Visit Provider Obstetrics & Gynecology
DX: Z12.31 Encounter for screening mammogram for malignant neoplasm of breast (principal)
CPT/HCPCS: 77063; 77067